=== PATIENT | male | born 1945 | race Caucasian/White ===

== ENCOUNTER 2025-01-26 07:54 | Outpatient (CLI) | payer MEDICARE, SELFPAY ==
--- NOTE | ~2025-01-26 | CT_ITS ---
CT of the Abdomen and Pelvis: Indication: Hematuria Technique: 2.5 mm axial scans were obtained through the abdomen and pelvis prior to and following in travenous administration of 130 cc of Omnipaque 350. Dose reduction technique was used on this scan b y utilizing automated exposure control and iterative reconstruction technique. The dose-length produc t (DLP) was 2104.70 mGy-cm. Findings: Scans through the lung bases demonstrates 3 mm nodule along the right minor fissure. The liver, spleen, pancreas, gallbladder, right adrenal gland, and kidneys are within normal limits. Left adrenal myelolipoma present. There is an additional 1.9 cm low-density left renal adenoma. There are atherosclerotic calcifications of the aorta and iliac vessels. No lymphadenopathy. No bowel obstruction or bowel wall thickening. There is no evidence to suggest acute appendicitis. Images through the pelvis were performed. There is a 3.5 x 2.8 cm mass the posterior right-sided urin stacey bladder, compatible urinary bladder carcinoma until proven otherwise (series 7 image 173).. Prost ate gland is enlarged, indenting the bladder base. Impression: 3.5 x 2.8 cm bladder mass at the posterior right aspect, compatible with bladder carcinoma until prov en otherwise. Cystoscopy recommended for further evaluation. Enlarged prostate gland. Benign left adrenal lesions, as above. Reviewed, dictated and finalized at location M. Impression: 3.5 x 2.8 cm bladder mass at the posterior right aspect, compatible with bladde r carcinoma until proven otherwise. Cystoscopy recommended for further evaluati on. Enlarged prostate gland. Benign left adrenal lesions, as above.
--- OUTSIDE RECORDS SUMMARY | 2025-01-26 07:58 | XMS_ITS | Referral Summary ---
Author Organization [facility] [address] Address [address] [place] [address] Care Team Providers Care Database Technician Name Role Phone Barron Foley DO Primary Care Provider [phone] Encounters Date Type Department Care Team Description 12/22/2024 Results Follow-Up [facility] at [address] [address] Zora Bullard NP Urine culture Urine, clean voided 12/21/2024 9:09 AM CDT - 12/21/2024 11:59 PM [place] [address] Gross hematuria Discharge Disposition: Discharge to home or self care 12/21/2024 8:15 AM CDT Office Visit [facility] at [address] [address] Naty Randall NP Gross hematuria (Primary Dx) from Last 3 Months Allergies Active Allergy Reactions Criticality Noted Date Comments Sulfa (Sulfonamide Antibiotics) Medications aspirin (ASPIR-81) 81 mg tablet take 1 Tablet by oral route every day 0 0 10/12/2015 Active multivitamin tablet tablet take 1 by Oral route once 0 0 10/12/2015 Active atorvastatin (LIPITOR) 20 mg tablet TAKE 1 TABLET EVERY DAY 90 tablet 3 06/26/2024 Active metoprolol XL (TOPROL-XL) 25 mg extended release tablet TAKE 1 TABLET EVERY DAY 90 tablet 3 08/01/2024 Active benazepriL-hydro chlorothiazide (LOTENSIN HCT) 20-25 mg per tablet TAKE 1 TABLET EVERY DAY 90 tablet 2 08/20/2024 Active Active Problems Problem Noted Date Diagnosed Date Coronary artery disease invo lving [place] coronary artery of [place] heart without angina pectoris 03/27/2017 History of coronary artery stent placement 03/27 Social History Tobacco Use Types Packs/Day Years Used Date Smoking Tobacco: Former Cigarettes Q uit: 01/14/2010 Smokeless Tobacco: Former Tobacco Cessation:Counseling Given: Not Answered Comments:Smoking History Packs/day: 4 Cigars Alcohol Use Standard Drinks/Week Comments Yes 0 (1 standard drink = 0.6 oz pur e alcohol) Sex and Gender Information Value Date Recorded Sex Assigned at Not on file 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 Gender Identity Not on file Sexual Orientation Not on file Last Filed Vital Signs Vital Sign Reading Time Taken Comments Blood Pressure 168/80 12/21/2024 8:16 AM CDT Pulse 62 12/21/2024 8:16 AM CDT Temperature 36.8 C (98.2 F) 12/21/2024 8:16 AM CDT Respiratory Rate 18 12/21/2024 8:16 AM CDT Oxygen Saturation 98% 12/21/2024 8:16 AM CDT Inhaled Oxygen Concentration - - Weight 96.2 kg (212 lb) 12/21/2024 8:16 AM CDT Height 170.2 cm (5' 7) 12/21/2024 8:16 AM CDT Body Mass Index 33.2 12/21/2024 8:16 AM CDT Plan of Treatment Not on file Procedures Procedure Name Priority Date/Time Associated Diagnosis Comments URINE CULTURE Routine 12/21/2024 9:10 AM CDT Gross hematuria POCT URINALYSIS DIPSTICK Routine 12/21/2024 8:24 AM CDT Gross hematuria from Last 3 Months Results * Urine culture Urine, clean voided (12/21/2024 9:10 AM CDT) Report Final Report: No growth Comment:Testing performed by : [facility], [address] [facility], [place]., [address] Urine, clean voided 12/21/2024 9:10 AM CDT 12/21/2024 4:09 PM CDT Narrative CHIP SHAFFER - 12/22/2024 5:02 PM CDT Testing performed by [facility] ([phone]) Naty Randall NP LAB MICROBIOLOGY - GENERAL ORDERABLES Final Result CHIP [facility]FFER [address] Department [place] [address] * (ABNORMAL) POCT urinalysis dipstick (12/21/2024 8:24 AM CDT) Color, Urine, POC Dark Pat Clarity, ur, POC Turbid(A) Clear Glucose, ur, POC Negative Negative Bilirubin, ur, POC Negative Negative Ketones, ur, POC Negative Negative Specific [place], POC 1.025 1.003 - 1.030 Blood, ur, POC Large(A) Negative pH, ur, POC 6.5 5.0 - 8.0 Protein, ur, POC 30.(A) Negative Urobilinogen, urine, POC 0.2 0.2 - 1.0 mg/dL Nitrite, ur, POC Positive(A) Negative Leukocytes, ur, POC Negative Negative Lot Number [id number] Urine 12/21/2024 8:24 AM CDT Naty Randall NP POINT OF CARE TEST ORDERAB LES Final Result from Last 3 Months Insurance MEDICARE [employer]ICARE [employer] Care Teams Database Technician Relationship Specialty Start Date End Date Barron Foley DO [address] [place], [place] [id number] PCP - General Internal Medicine 02/28/24
--- OUTSIDE RECORDS SUMMARY | 2025-01-26 07:58 | XMS_ITS | Encounter Summary ---
Author Organization [facility] Healthcare Address [address] [place] [address] Care Team Providers Care A Operator Name Role Phone Barron Foley DO Primary Care Provider [phone] Encounter Details Date Type Department Care Team (Late st Contact Info) Description 12/22/2024 Results Follow-Up [facility] Medical [facility] at [address] [address] Zora Bullard NP [address] [place] [address] [address] [place] [address] Urine culture Urine, clean voided Social History Tobacco Use Types Packs/Day Years Used Date Smoking Tobacco: Former Cigarettes Q uit: 01/14/2010 Smokeless Tobacco: Former Comments:Smoking History Pac ks/day: 4 Cigars Alcohol Use Standard Drinks/Week Comments Yes 0 (1 standard drink = 0.6 oz pur e alcohol) Sex and Gender Information Value Date Recorded Sex Assigned at Not on file Legal Sex Male 4:01 AM CPC Gender Identity Not on file Sexual Orientation Not on file documented as of this encounter Miscellaneous Notes * Result Encounter Note - Lisa Weiss MA - 12/24/2024 9:51 AM CDT Patient called back and was given his test results, He said that he has an appointment with a Urologist later this month. He said that he would keep the appointment to make sure that nothing else wasgoing on. He said that he was worried about all the blood that was found in his urine at the time of his visit. Other than that he had a good understanding. * Result Encounter Note - Trisha Perez LPN - 12/24/2024 8:08 AM CDT LMTRC for test results. * Result Encounter Note - Agnes Rodgers LPN - 12/23/2024 8:29 AM CDT LVM for pt to return call to clinic to notify them of labs results. * Result Encounter Note - Zora Bullard NP - 12/22/2024 5:11 PM CDT Please alert patient that urine culture was negative. He can stop taking antibiotics if any were given during visit for UTI. If s/s persist, he should follow up with PCP. documented in this encounter Plan of Treatment Not on file documented as of this encounter Visit Diagnoses Not on filedocumented in this encounter Care Teams A Operator Relationship Specialty Start Date End Date Barron Foley DO [address] [address] PCP - General Internal Medicine 02/28/24 documented as of this encounter
--- OUTSIDE RECORDS SUMMARY | 2025-01-26 07:58 | XMS_ITS | Clinical Summary ---
Author Organization [facility] [address] Address [address] [place] [address] Care Team Providers Care Passenger Conductor Name Role Phone Barron Foley Primary Care Provider [phone] Allergies Active Allergy Reactions Criticality Noted Date [...] Diagnosed Date Coronary artery disease invo lving [place] coronary artery of [place] heart without angina pectoris 03/27/2017 History of coronary artery stent placement 03/27 Encounters Date Type Department Care Team Description 12/22/2024 Results Follow-Up [facility] Medical [facility] Convenient [facility] at [address] [address] Zora Bullard NP Urine culture Urine, clean voided 12/21/2024 9:09 AM CDT - 12/21/2024 11:59 PM CDT Hospital Encounter [address] [address] Gross hematuria Discharge Disposition: Discharge to home or self care 12/21/2024 8:15 AM CDT Office Visit [facility] Medical [facility] at [address] [address] Naty Randall NP Gross hematuria (Primary Dx) from Last 3 Months Surgical History Surgery Date Site/Laterality Comments CORONARY STENT PLACEMENT Medical History Medical History Date Comments Coronary artery disease Family History Medical History Relation Name Comments Heart attack Father 2 Myocardial infa rction; Cause of : Myocardial infarction Diabetes Mother 2 Diabetes mellit ; Cause of : Diabetes mellitus Relation Name Status Comments Father 1 (Age 72) Father 2 Mother 1 (Age 80) Mother 2 Social History Tobacco Use Types Packs/Day Years Used Date Smoking Tobacco: Former Cigarettes Q uit: 01/14/2010 Smokeless Tobacco: Former Tobacco Cessation:Counseling Given: Not Answered Comments:Smoking History Packs/day: 4 Cigars Alcohol Use Standard Drinks/Week Comments Yes 0 (1 standard drink = 0.6 oz pur e alcohol) Sex and Gender Information Value Date Recorded Sex Assigned at Not on file 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 Gender Identity Not on file Sexual Orientation Not on file Obstetrics History Last Filed Vital Signs Vital Sign Reading [...] 12/21/2024 8:16 AM CDT Plan of Treatment Health Maintenance Due Date Last Done Comments Depression Screening 1945 Fall Risk Assessment 1945 Hepatitis C Screening 1945 DTaP/Tdap/Td Vaccine (1 - Tdap) 1958 Hepatitis B Screening 1965 Pneumococcal vaccine 65+ (1 of 1 - PCV) 1997 Zoster Vaccine (1 of 2) 1997 Abdominal Aortic Aneurysm (A AA) Screen 2012 Well Visit 65+ 2012 Influenza Vaccine (#1) 2025 9, 04/06/2018, 04/29/2017, Additional history exists Procedures Procedure Name Priority Date/Time Associated Diagnosis Comments URINE CULTURE Routine 12/21/2024 9:10 AM CDT Gross hematuria POCT URINALYSIS DIPSTICK Routine 12/21/2024 8:24 AM CDT Gross hematuria from Last 3 Months Results * Urine culture Urine, clean voided (12/21/2024 9:10 AM CDT) Report Final Report: No growth Comment:Testing performed by : [facility], [address] [place]., [address] Urine, clean voided 12/21/2024 9:10 AM CDT 12/21/2024 4:09 PM CDT Narrative CHIP SHAFFER - 12/22/2024 5:02 PM CDT Testing performed by [facility] Microbiology Laboratory ([phone]) Naty Randall NP LAB MICROBIOLOGY - GENERAL ORDERABLES Final Result [facility] [address] Department [place] [address] * (ABNORMAL) POCT urinalysis dipstick (12/21/2024 8:24 AM CDT) Color, Urine, POC Dark Pat Clarity, ur, POC Turbid(A) Clear Glucose, ur, POC Negative Negative Bilirubin, ur, POC Negative Negative Ketones, ur, POC Negative Negative Specific [place], POC 1.025 1.003 - 1.030 Blood, ur, POC Large(A) Negative pH, ur, POC 6.5 5.0 - 8.0 Protein, ur, POC 30.(A) Negative Urobilinogen, urine, POC 0.2 0.2 - 1.0 mg/dL Nitrite, ur, POC Positive(A) Negative Leukocytes, ur, POC Negative Negative Lot Number [id number] Urine 12/21/2024 8:24 AM CDT Naty Randall NP POINT OF CARE TEST ORDERAB LES Final Result from Last 3 Months Insurance MEDICARE [facility] MEDICARE [employer] Member Subscriber Plan / Payer (Ef fective 2022-Present) Name:Umang Mcclain Member ID:[id number] Relation to Subscriber:Self Name:Umang Mcclain Subscriber ID:[id number] Payer ID:[id number] Group ID:Not on file Type:COMMERCIAL Address: [address] [address] [place] [address] Care Teams Passenger Conductor Relationship Specialty Start Date End Date Barron Foley DO [address] [facility] [address] [place] [address] PCP - General Internal Medicine 02/28/24
[2025-01-26 08:25] LABS: Estimated Glomerular Filt Rate > 60
== END 2025-01-26 07:55 | disposition home or self-care (01) ==
PROVIDERS: PCP Internal Medicine; Visit Provider Nurse Practitioner Family
DX: R31.0 Gross hematuria (principal); N32.9 Bladder disorder, unspecified; N40.0 Benign prostatic hyperplasia without lower urinary tract symptoms; E27.9 Disorder of adrenal gland, unspecified
CPT/HCPCS: 74178; Q9967

== ENCOUNTER 2025-02-26 08:11 | Outpatient (CLI) | payer MEDICARE, SELFPAY ==
--- OUTSIDE RECORDS SUMMARY | 2025-02-26 08:15 | XMS_ITS | Clinical Summary ---
Author Organization [facility] [place] [address] Address [address] [place] [address] Care Team Providers Care Manager Technical Support Name Role Phone Barron Foley Primary Care Provider [phone] Allergies Active Allergy Reactions Criticality Noted Date [...] Diagnosed Date Coronary artery disease invo lving [place] coronary artery of [place] heart without angina pectoris 03/27/2017 History of coronary artery stent placement 03/27 Encounters Date Type Department Care Team Description 12/22/2024 Results Follow-Up [facility] Medical Group Convenient Care at [address] [address] Zora Bullard NP Urine culture Urine, clean voided 12/21/2024 9:09 AM CDT - 12/21/2024 11:59 PM CDT Hospital Encounter [address] [address] Gross hematuria Discharge Disposition: Discharge to home or self care 12/21/2024 8:15 AM CDT Office Visit [facility] Medical [facility] at [address] [address] Naty Randall NP Gross hematuria [...] on file 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 Gender Identity Not on file Sexual Orientation [...] Report: No growth Comment:Testing performed by : [facility], [address] [place]., [address] Urine, clean voided 12/21/2024 9:10 AM CDT 12/21/2024 4:09 PM CDT Narrative CHIP SHAFFER - 12/22/2024 5:02 PM CDT Testing performed by [facility] Laboratory ([phone]) Naty Randall NP LAB MICROBIOLOGY - GENERAL ORDERABLES Final Result [facility] [address] Department [place] [address] * (ABNORMAL) POCT urinalysis dipstick (12/21/2024 8:24 AM CDT) Color, Urine, POC Dark Pat Clarity, ur, POC Turbid(A) Clear Glucose, ur, POC Negative Negative Bilirubin, ur, POC Negative Negative Ketones, ur, POC Negative Negative Specific [place], POC 1.025 1.003 - 1.030 Blood, ur, POC Large(A) Negative pH, ur, POC 6.5 5.0 - 8.0 Protein, ur, POC 30.(A) Negative Urobilinogen, urine, POC 0.2 0.2 - 1.0 mg/dL Nitrite, ur, POC Positive(A) Negative Leukocytes, ur, POC Negative Negative Lot Number [id number] Urine 12/21/2024 8:24 AM CDT Naty Randall NP POINT OF CARE TEST ORDERAB LES Final Result from Last 3 Months Insurance MEDICARE [facility] MEDIC[place] [employer] Care Teams Manager Technical Support Relationship Specialty Start Date End Date Barron Foley DO [address] [facility] [address] [place] [address] PCP - General Internal Medicine 02/28/24
--- NOTE | 2025-02-26 08:20 | ECG_ITS ---
Test Date: 2025-02-26 08:26:25 Measurements Intervals [place] Rate: 61 P: 59 ME: 244 QRS: -29 QRSD: 101 T: 20 QT: 383 QTc: 386 Interpretive Statements SINUS RHYTHM WITH FIRST DEGREE AV BLOCK BORDERLINE LEFT AXIS DEVIATION [QRS AXIS < -20] No previous ECG available for comparison Electronically Signed On 02-26-2025 11:40:24 CDT by Jeremiah Madrid M.D.
[2025-02-26 09:03] LABS: Anion Gap 8 mmol/L (4-12); Blood Urea Nitrogen 13 mg/dL (9-20); Calcium 9.2 mg/dL (8.4-10.2); Carbon Dioxide 24 mmol/L (22-30); Chloride 100 mmol/L (98-107); Estimated Glomerular Filt Rate > 60; Glucose 136 mg/dL (65-110); Potassium 3.9 mmol/L (3.4-5.0); Sodium 132 mmol/L (137-145)
== END 2025-02-26 08:12 | disposition home or self-care (01) ==
PROVIDERS: Anesthesiology; PCP Internal Medicine; Visit Provider Urology
DX: R94.31 Abnormal electrocardiogram [ECG] [EKG] (principal); I10 Essential (primary) hypertension
CPT/HCPCS: 36415; 80048; 93005

== ENCOUNTER 2025-03-05 00:11 | Day surgery (SDC) | payer MEDICARE, SELFPAY ==
--- NOTE | 2025-02-25 15:16 | PC.NURSE ---
Report to the Outpatient Waiting Room, entrance under the green pavilion located off [facility], at time __1:15 PM on date __03/05/25 . Planned Procedure Time: __3:15 PM .? Time changes happen often and if your time is changed the preop area will call you the afternoon before. - You and your visitor will be asked to self-screen and do not enter if you have any COVID symptoms. Please call surgeon if you need to reschedule. - A mask is optional within the hospital at this time. Patients may have clear liquids (water, carbonated beverages, clear teas, apple juice) until 3 hours prior to surgery( 12:15 PM) with a maximum of 20 ounces. - No food from midnight until time of surgery and no smoking, or chewing tobacco (or any form of nicotine). No chewing gum, candy or mints. Take only the following medications with a SIP of water on the morning of surgery: METOPROLOL DO NOT STOP ANY OF YOUR OTHER PRESCRIPTION MEDICATIONS PRIOR TO SURGERY EXCEPT THE FOLLOWING Hold all vitamins and supplements for 3 days per anesthesiologist. Medications to discontinue per physician PATIENT STATES HOLD ASPIRIN AND MULTIVITAMIN 7 DAYS PRE OP PER DR DAY Date to take last dose 02/25/25 Please no make-up, nail canadian, hairspray, perfume, deodorant, or body powder the day of surgery.? No jewelry (including any body piercings) or valuables the day of surgery, leave them at home.? Please take a shower or bath the night before, or the morning of, surgery with an antibacterial soap.? Wear comfortable, loose fitting clothing.? Children are encouraged to wear pajamas. - Jewelry must be removed prior to entering the operating room.? Rings and piercings that are not removed may be cut off. - The hospital will not accept responsibility for valuables.? - Please leave all valuables, including medications, at home the day of surgery. If you are going home after surgery, a licensed driver messenger must drive you home.? - NO public transportation without another adult if you receive anesthesia. - We recommend that an adult stay with you for 24 hours following discharge. - We also recommend that you do not drive, make important decision, drink alcoholic beverages, or take any drugs that were not prescribed by your health care provider for at least 24 hours after your discharge time. Follow any additional instructions given to you from your surgeon. Telephone instructions given to __PATIENT and asked if any additional questions and then verbalized understanding. Patient advised to call surgeon office or pre surgery nurse liaison [phone] if any additional questions.
[2025-02-25 15:34] VITALS: BMI 34.4
--- NOTE | 2025-02-26 07:30 | P.HP_ITS ---
History of Present Illness History of Present Illness Consent: Risks, benefits, and alternatives have been discussed and questions answered. Patient agrees to proceed with procedure. Chief complaint: bladder tumor Narrative: Umang Mcclain is a 79 year old male with intermittent episodes of painless gross hematuria. ?CT of the abdomen and pelvis w/wo contrast shows normal upper tracts but a possible 3 cm bladder mass. ?Cystoscopy confirms a papillary urot helial neoplasm in the right posterolateral bladder wall. ?He has a very large prostate with a large median lobe, hence our decision to start finasteride Review of Systems Cardiovascular: Cardiovascular: Denies chest pain, Denies lightheadedness, Denies palpitations and Denies dyspnea Respiratory: Respiratory: Denies dyspnea Gastrointestinal: Gastrointestinal: Denies diarrhea, Denies nausea and Denies vomiting Genitourinary: Genitourinary: Denies hematuria and Denies dysuria Endocrine: Endocrine: Denies palpitations [facility] Family History Family History Mother Family history of diabetes mellitus in first degree relative Patient's mother is Father Family history of congestive heart failure, Onset Age: 72 Patient's father is Social History Social History Smoking status: Never smoker Tobacco type: cigars Second hand tobacco smoke exposure: No Smoking end date: 06/25/10 Additional smoking assessment comments: QUIT CIGARS 2014 Alcohol intake: current Drinks per week: 12 Alcohol use details: BEER Lack of Transportation: No Lack of Food: Never True Current Housing: I Have Housing Concerned About Future Housing: No Difficulty Paying Gas/Electric Bills: No Difficulty Paying for Meds: No Currently Unemployed: No Education: High School Diploma/GED Difficulty w/ Childcare or Family Care: No Living arrangements: alone Spiritual care concerns: No Meds Home Medications and Allergies Home Medications ?Medication ?Instructions ?Recorded ?Confirmed ?Type aspirin 81 mg tablet,delayed 81 mg PO DAILY 06/20/19 0 02/25/25 History release (Adult Low Dose Aspirin) atorvastatin 20 mg tablet 20 mg PO DAILY 06/20/1909/16 History metoprolol succinate 25 mg 25 mg PO DAILY 06/20/1909/16 History tablet,extended release 24 hr multivitamin (Multiple Vitamins 1 tablet PO DAILY 05/2602/25/25 History tablet) benazepril 20 mg tablet 20 mg PO DAILY 03/27/2309/16 History benazepril 20 1 tablet PO DAILY 02/25/25 0 02/25/25 History mg-hydrochlorothiazide 25 mg tablet finasteride 5 mg tablet 5 mg PO DAILY 02/25/2502/25 History tamsulosin 0.4 mg capsule 0.4 mg PO DAILY 02/25/2509/16 History Allergies Allergy/AdvReac Type Severity Reaction Status Date / Time Sulfa (Sulfonamide Allergy Mild Hives Verified 02/25/25 15:15 Antibiotics) Exam Const: General: no acute distress Resp: Effort & Inspection: normal respiratory effort GI: Inspection: non-distended GI Palp: No abdominal tenderness and No Guarding due to palpation present (GI) Auscultation: normal bowel sounds Assessment and Plan Assessment and plan (1) Malignant neoplasm of overlapping sites of bladder: Code(s): C67.8 - Malignant neoplasm of overlapping sites of bladder Status: Acute Assessment and Plan: * TURBT, gemcitabine installation
[2025-03-05] VITALS (11 sets, daily range): BP systolic 93–156; BP diastolic 43–82; PULSE 60–80; RESP 12–18; TEMP 36.1–36.4; O2SAT 94–100
--- NOTE | 2025-03-05 06:01 | WPDHPUPDATE1 ---
History and Physical Update Update Date/Time: 03/05/25 06:01 History and Physical has been reviewed, including an updated exam of the patient. There are NO changes in the patient's condition. Risks, benefits, and alternatives have been discussed and questions answered. Patient agrees to proceed with procedure.
[2025-03-05] MEDS: LACTATED RINGERS 1,000 ML 30 ML IV CONT ×2 (13:00→15:06)
--- NOTE | 2025-03-05 13:12 | WPDANESEPPF ---
Anes - Initial Pre Proc Eval Procedure: Operation Date: 03/05/25 14:15 Proposed Procedures p Trans Urethral Resection Bladder Tumor with Gemcitabine Instillation - Prince Pedroza MD Date/Time: 03/05/25 13:12 Surgeon: Prince Pedroza MD Pre Op Diagnosis: bladder tumor Patient Data Age: 80 Gender: M Height: 1.7 m Weight: 94.5 kg Last Vital Signs Temp 36.4 C L 03/05/25 12:15 Pulse 64 03/05/25 12:15 Resp 18 03/05/25 12:15 BP 156/82 H 03/05/25 12:15 Pulse Ox 98 03/05/25 12:15 O2 Del Method Room Air 03/05/25 12:15 Allergies Allergy/AdvReac Type Severity Reaction Status Date / Time Sulfa (Sulfonamide Allergy Mild Hives Verified 03/05/25 12:41 Antibiotics) Home Medications ?Medication ?Instructions ?Recorded ?Confirmed ?Type aspirin 81 mg tablet,delayed 81 mg PO DAILY 06/20/19 03/05/25 History release (Adult Low Dose Aspirin) atorvastatin 20 mg tablet 20 mg PO DAILY 06/20/19 03/05/25 History metoprolol succinate 25 mg 25 mg PO DAILY 06/20/19 03/05/25 History tablet,extended release 24 hr multivitamin (Multiple Vitamins 1 tablet PO DAILY 06/20/19 03/05/25 History tablet) benazepril 20 mg tablet 20 mg PO DAILY 03/27/23 02/25/25 History benazepril 20 1 tablet PO DAILY 02/25/25 03/05/25 History mg-hydrochlorothiazide 25 mg tablet finasteride 5 mg tablet 5 mg PO DAILY 02/25/25 03/05/25 History tamsulosin 0.4 mg capsule 0.4 mg PO DAILY 02/25/25 03/05/25 History Patient hx anesthesia problems: none Family hx anesthesia problems: none Results Review: All pre-operative results and documents have been reviewed as part of the pre-operative evaluation. [facility] Family History Family History Mother Family history of diabetes mellitus in first degree relative Patient's mother is Father Family history of congestive heart failure, Onset Age: 72 Patient's father is Social History Social History Smoking status: Never smoker Second hand tobacco smoke exposure: No Smoking end date: 06/25/10 Additional smoking assessment comments: QUIT CIGARS 2014 Alcohol intake: current Drinks per week: 12 Lack of Transportation: No Lack of Food: Never True Current Housing: I Have Housing Concerned About Future Housing: No Difficulty Paying Gas/Electric Bills: No Difficulty Paying for Meds: No Currently Unemployed: No Education: High School Diploma/GED Difficulty w/ Childcare or Family Care: No Anes - Eval Final PreProcedure Day of Procedure 03/05/25 13:12 Patient weight: obese Heart: regular rate and rhythm Lungs: clear to auscultation Airway: Mallampati scale class III Neurological: alert and oriented Last oral intake: >/= 8 hours ASA classification: III Emergent: no Anesthetic plan: proceed Anesthesia type and monitoring: general LMA and standard monitoring Results Review: All pre-operative results and documents have been reviewed as part of the pre-operative evaluation. Informed Consent: The patient's anesthetic plan and its attendant risks and benefits were discussed with the patient/family/POA. Questions were solicited and answers provided to the satisfaction of the patient/family/POA.
[2025-03-05] MEDS: ceFAZolin 2 GM in SODIUM CHLORIDE 0.9% IV 50 ML 100 ML IVPB (13:58)
[2025-03-05] MEDS: LIDOCAINE 2% GEL UROJET 10 ML PKG MUCOUS MEM (14:11)
--- NOTE | 2025-03-05 14:30 | S_PTH ---
PATIENT: Umang Mcclain LOC: [facility] U#:[id number] AGE/SX: 80/M ROOM: RE03/05/[address]: Prince Pedroza MD : 1945 BED: DIS: 03/05/2025 SPEC #: [id number] RECD: 03/06/25 07:27 STATUS: FIGUEROA REQ #: [id number] SABRINA: 03/05/25 14:[address]: Prince Pedroza DEPT: [facility] Surgical RECD BY: Kassandra Steve ENTERED: 03/06/25 07:28 SP TYPE: Surgical OTHR DR: Barron Foley DO Tissues: A - Bladder Tumor B - Bladder Tumor Procedures: Hematoxylin and Eosin Stain Gross and Microscopic Level 4
[2025-03-05] MEDS: SODIUM CHLORIDE 0.9% IV 23.7 ML, GEMCITABINE HCL 1,000 MG BLADDER ×2 (14:55)
[2025-03-05] MEDS: fentaNYL CITRATE INJ (*CRX) 100 MCG/2 ML VIAL 25 MCG IV PUSH ×6 (15:00→15:48)
--- NOTE | 2025-03-05 15:02 | W.PM.PROC2 ---
Procedure Note - Detailed Date of Procedure 03/05/25 Pre-op Diagnosis Bladder tumor Post-op Diagnosis Same Procedure Performed TURBT (large, 5cm), right ureteroscopy Surgeon Prince Pedroza MD Anesthesia General Description of Procedure Patient brought to the operative suite was prepped draped in routine sterile fashion while in dorsal lithotomy position after the uneventful induction of a general anesthetic. Cystoscopy was undertaken with a 24 F resectoscope sheath. The patient has significant lateral lobe enlargement and a very large median lobe protruding into the bladder. This large papillary lesion is situated in his right posterior lateral bladder wall. Somewhat surprisingly, I was able to resect it in its entirety without much trauma to this large median lobe. Also, somewhat surprisingly, I was able to clearly identify the right ureteral orifice. Although resection was required near it I was able to avoid cautery. At the termination of the procedure I did do right rigid ureteroscopy to the iliac vessels and saw no identifiable urothelial cancer involving the distal right ureter. Base and periphery of the resected site was cauterized and the resectoscope was removed. A 18 F Moran catheter was placed to drainage for mitomycin installation Drains Yes Packing No Pathology None sent
--- NOTE | 2025-03-05 15:07 | P.OP_ITS ---
Procedure Note - Detailed Date of Procedure 03/05/25 Pre-op Diagnosis bladder tumor Post-op Diagnosis Same Procedure Performed Gemcitabine installation Surgeon Prince Pedroza MD Anesthesia General and None Description of Procedure With the patient in the supine position, a 16F Moran catheter is placed using s terile technique. Using a protective facemask, gown and double layer of gloves Gemcitabine 2gm in 100cc saline is administered through the catheter/into the bladder. The catheter is then plugged. Patient was instructed to lie supine x20min, then to roll both the left and right x20 min. each. Total dwell time will be 60 min., after which the bladder will be drained and catheter removed.
== END 2025-03-05 17:15 | disposition home or self-care (01) ==
PROVIDERS: PCP Internal Medicine; Visit Provider Urology
PROC: 0TBB8ZZ Excision of Bladder, Via Natural or Artificial Opening Endoscopic (ICD-10-PCS; CPT 52240; principal; 2025-03-05 14:15)
DX: C67.8 Malignant neoplasm of overlapping sites of bladder (principal); N40.0 Benign prostatic hyperplasia without lower urinary tract symptoms; N30.20 Other chronic cystitis without hematuria; E66.9 Obesity, unspecified; Z68.32 Body mass index [BMI] 32.0-32.9, adult; Z79.82 Long term (current) use of aspirin; Z87.891 Personal history of nicotine dependence; Z82.49 Family history of ischemic heart disease and other diseases of the circulatory system
CPT/HCPCS: 52240; 51720; 88305; J0690; J2003; J2405; J2704; J3010; J7120; J9201

== ENCOUNTER 2025-03-13 12:23 | Outpatient (CLI) | payer MEDICARE, SELFPAY ==
--- NOTE | ~2025-03-13 | XR_ITS ---
EXAMINATION: XR toe 1st LT min 2V, 03/13/2025 13:27 CDT HISTORY: M79.676 - Pain in unspecified toe(s) COMPARISON: No comparisons available. Findings: No acute fracture or malalignment. Moderate degenerative changes Soft tissues unremarkable. Impression: No acute fracture or malalignment. Reviewed, dictated and finalized at location A. Impression: No acute fracture or malalignment.
== END 2025-03-13 12:24 | disposition home or self-care (01) ==
PROVIDERS: PCP Internal Medicine; Visit Provider Nurse Practitioner
DX: M79.675 Pain in left toe(s) (principal)
CPT/HCPCS: 73660

== ENCOUNTER 2025-04-09 00:18 | Day surgery (SDC) | payer MEDICARE, SELFPAY ==
[2025-04-01 10:21] VITALS: BMI 32.3
--- NOTE | 2025-04-01 10:27 | PC.NURSE ---
[facility] has started construction of its new state of the art ER which will open Spring 2026. With this, we anticipate parking may be a challenge for some our surgical patients and families. Parking spaces are limited but are available for all Surgical, obstetrics, and ER patients sharing this lot. If you arrive and find you are having a hard time finding a parking space, please note that we understand the challenges, please drive around the hospital and park near Hospital Entrance 1. When you enter this entrance, you can ask a volunteer to direct or take you back to the surgical waiting area to check in. We appreciate everyone?s understanding of these expected challenges while we build for your future. Report to the Outpatient Waiting Room, entrance under the green pavilion located off [address], at time __1045am on date __04/09/25 . Planned Procedure Time: __1245pm .? Time changes happen often and if your time is changed the preop area will call you the afternoon before. - You and your visitor will be asked to self-screen and do not enter if you have any COVID symptoms. Please call surgeon if you need to reschedule. - A mask is optional within the hospital at this time. Patients may have clear liquids (water, carbonated beverages, clear teas, apple juice) until 3 hours prior to surgery with a maximum of 20 ounces. - No food from midnight until time of surgery and no smoking, or chewing tobacco (or any form of nicotine). No chewing gum, candy or mints. (0945am) Take only the following medications with a SIP of water on the morning of surgery: Metoprolol DO NOT STOP ANY OF YOUR OTHER PRESCRIPTION MEDICATIONS PRIOR TO SURGERY EXCEPT THE FOLLOWING Hold all vitamins and supplements for [address] Pedroza Date of last dose is 04/01/25 Medications to discontinue per physician Aspirin and NSAIDS for 7 days prior Date to take last dose___04/01/25 Please no make-up, nail malawian, hairspray, perfume, deodorant, or body powder the day of surgery.? No jewelry (including any body piercings) or valuables the day of surgery, leave them at home.? Please take a shower or bath the night before, or the morning of, surgery with an antibacterial soap.? Wear comfortable, loose fitting clothing.? Children are encouraged to wear pajamas. - Jewelry must be removed prior to entering the operating room.? Rings and piercings that are not removed may be cut off. - The hospital will not accept responsibility for valuables.? - Please leave all valuables, including medications, at home the day of surgery. If you are going home after surgery, a licensed route driver salesperson must drive you home.? - NO public transportation without another adult if you receive anesthesia. - We recommend that an adult stay with you for 24 hours following discharge. - We also recommend that you do not drive, make important decision, drink alcoholic beverages, or take any drugs that were not prescribed by your health care provider for at least 24 hours after your discharge time. Follow any additional instructions given to you from your surgeon. Telephone instructions given to ___Patient and asked if any additional questions and then verbalized understanding. Patient advised to call surgeon office or pre surgery nurse liaison [phone] if any additional questions.
[2025-04-09] VITALS (7 sets, daily range): BP systolic 102–146; BP diastolic 58–88; PULSE 53–66; RESP 13–16; TEMP 36.1–36.4; O2SAT 94–99
--- NOTE | 2025-04-09 06:25 | WPDHPUPDATE1 ---
History and Physical Update Update Date/Time: 04/09/25 06:25 History and Physical has been reviewed, including an updated exam of the patient. There are NO changes in the patient's condition. Risks, benefits, and alternatives have been discussed and questions answered. Patient agrees to proceed with procedure.
[2025-04-09] MEDS: LACTATED RINGERS 1,000 ML 30 ML IV CONT (10:52)
--- NOTE | 2025-04-09 11:09 | WPDANESEPPF ---
Anes - Initial Pre Proc Eval Procedure: Operation Date: 04/09/25 12:30 Proposed Procedures p Re-Resection of Bladder Tumor - Prince Pedroza MD Date/Time: 04/09/25 11:09 Surgeon: Prince Pedroza MD Pre Op Diagnosis: inva bladder ca Patient Data Age: 80 Gender: M Height: 1.7 m Weight: 93.1 kg Last Vital Signs Temp 36.4 C 04/09/25 10:30 Pulse 66 04/09/25 10:30 Resp 16 04/09/25 10:30 BP 126/81 04/09/25 10:30 Pulse Ox 99 04/09/25 10:30 O2 Del Method Room Air 04/09/25 10:30 Allergies Allergy/AdvReac Type Severity Reaction Status Date / Time Sulfa (Sulfonamide Allergy Mild Hives Verified 04/09/25 10:58 Antibiotics) Home Medications ?Medication ?Instructions ?Recorded ?Confirmed ?Type aspirin 81 mg tablet,delayed 81 mg PO DAILY 06/20/19 04/09/25 History release (Adult Low Dose Aspirin) Held on 04/01/25. Instructions: .Provider Order atorvastatin 20 mg tablet 20 mg PO DAILY 06/20/19 04/09/25 History metoprolol succinate 25 mg 25 mg PO DAILY 06/20/19 04/09/25 History tablet,extended release 24 hr multivitamin (Multiple Vitamins 1 tablet PO DAILY 06/20/19 04/09/25 History tablet) benazepril 20 1 tablet PO DAILY 02/25/25 04/09/25 History mg-hydrochlorothiazide 25 mg tablet finasteride 5 mg tablet 5 mg PO DAILY 02/25/25 04/09/25 History tamsulosin 0.4 mg capsule 0.4 mg PO DAILY 02/25/25 04/09/25 History colchicine 0.6 mg tablet 0.6 mg PO BID #10 tabs 03/31/25 04/09/25 Rx methylprednisolone 4 mg tablets in See Rx Instructions PO PER PKG DIR 03/31/25 04/09/25 Rx a dose pack (Medrol (Jason)) #21 ea Patient hx anesthesia problems: none Family hx anesthesia problems: none Results Review: All pre-operative results and documents have been reviewed as part of the pre-operative evaluation. [facility] Past Medical History Medical History (Updated 03/31/25 @ 10:23 by Naveen Mead APRN) Bladder mass BMI 24.0-24.9, adult Elevated blood pressure reading Other fatigue Rash of genital area Pure hypercholesterolemia Inflamed skin tag Gout, unspecified Encounter for screening for malignant neoplasm of prostate Adult general medical examination Family History Family History (Updated 03/31/25 @ 09:18 by Tena Alcantara Spencer) Mother Family history of diabetes mellitus in first degree relative Father Family history of congestive heart failure, Onset Age: 72 Social History Social History (Updated 03/31/25 @ 09:45 by Tena Alcantara Spencer) Smoking status: Former smoker Tobacco type: cigars Second hand tobacco smoke exposure: No Smoking end date: 06/25/10 Additional smoking assessment comments: QUIT CIGARS 2014 Alcohol intake: current Drinks per week: 12 Alcohol use details: BEER Substance use: never Substance use type: does not use Do You Feel Safe in your Home?: Yes Lack of Transportation: No Lack of Food: Never True Current Housing: I Have Housing Concerned About Future Housing: No Difficulty Paying Gas/Electric Bills: No Difficulty Paying for Meds: No Currently Unemployed: No Education: High School Diploma/GED Difficulty w/ Childcare or Family Care: No Living arrangements: alone Occupation/Education: retired Additional occupation/education comments: [employer] Gender identity (if verbalized by the patient): Male Spiritual care concerns: No Anes - Eval Final PreProcedure Day of Procedure 04/09/25 11:09 Patient weight: obese Heart: regular rate and rhythm Lungs: clear to auscultation Airway: Mallampati scale class II Neurological: alert and oriented Last oral intake: >/= 8 hours ASA classification: III Emergent: no Anesthetic plan: proceed Anesthesia type and monitoring: general LMA and standard monitoring Results Review: All pre-operative results and documents have been reviewed as part of the pre-operative evaluation. Informed Consent: The patient's anesthetic plan and its attendant risks and benefits were discussed with the patient/family/POA. Questions were solicited and answers provided to the satisfaction of the patient/family/POA.
[2025-04-09] MEDS: ceFAZolin 2 GM in SODIUM CHLORIDE 0.9% IV 50 ML 100 ML IVPB (11:55)
--- NOTE | 2025-04-09 12:19 | S_PTH ---
PATIENT: Umang Mcclain LOC: [facility] U#:[id number] AGE/SX: 80/M ROOM: RE04/09/[address]: Prince Pedroza MD : 1945 BED: DIS: 04/09/2025 SPEC #: [id number] RECD: 04/09/25 13:26 STATUS: FIGUEROA REQ #: [id number] SABRINA: 04/09/25 12:[address]: Prince Pedroza DEPT: [facility] Surgical RECD BY: Kassandra Steve ENTERED: 04/09/25 13:26 SP TYPE: Surgical OTHR DR: Barron Foley DO Tissues: A - Bladder TURBT Procedures: Hematoxylin and Eosin Stain Gross and Microscopic Level 5
[2025-04-09] MEDS: LIDOCAINE 2% GEL UROJET 10 ML PKG MUCOUS MEM (12:20)
--- NOTE | 2025-04-09 12:30 | W.PM.PROC2 ---
Procedure Note - Detailed Date of Procedure 04/09/25 Pre-op Diagnosis History of muscle-invasive bladder ca. Post-op Diagnosis Same Procedure Performed Re-resection bladder tumor base Surgeon Prince Pedroza MD Anesthesia General Findings No gross residual bladder tumor Description of Procedure patient is brought to the operative suite was prepped draped in routine sterile fashion while in a dorsal lithotomy position. Twenty-four F resectoscope sheath was placed in the bladder. The bladder was very carefully inspected. I can see the site of the previous TURBT in the right posterior bladder wall. There was no gross residual or recurrent neoplasm in that site. Using a 24 F resectoscope loop I resected the base great care to avoid any resection or cautery around the right ureteral orifice. The base and periphery of this resected site was cauterized with the loop. Scopes and wires removed and he was taken to the recovery good condition Drains No Packing No Pathology None sent
== END 2025-04-09 13:50 | disposition home or self-care (01) ==
PROVIDERS: PCP Internal Medicine; Visit Provider Urology
PROC: 0TBB8ZZ Excision of Bladder, Via Natural or Artificial Opening Endoscopic (ICD-10-PCS; CPT 52235; principal; 2025-04-09 12:30)
DX: N32.89 Other specified disorders of bladder (principal); N40.0 Benign prostatic hyperplasia without lower urinary tract symptoms; I11.0 Hypertensive heart disease with heart failure; I50.9 Heart failure, unspecified; E11.9 Type 2 diabetes mellitus without complications; E78.5 Hyperlipidemia, unspecified; I25.10 Atherosclerotic heart disease of native coronary artery without angina pectoris; R53.83 Other fatigue; Z79.82 Long term (current) use of aspirin; Z87.891 Personal history of nicotine dependence; Z85.51 Personal history of malignant neoplasm of bladder; Z82.49 Family history of ischemic heart disease and other diseases of the circulatory system
CPT/HCPCS: 52235; 88307; J0690; J2003; J2405; J2704; J7120

== ENCOUNTER 2025-04-09 22:17 | Observation (INO) | payer MEDICARE, SELFPAY ==
--- NOTE | ~2025-04-09 | CT_ITS ---
EXAMINATION: CT abdomen pelvis w con DATE: 04/10/2025 01:16 INDICATION: Hematuria TECHNIQUE: Computed tomography (CT) of the abdomen and pelvis was performed with 100 mL Omnipaque-350 intravenous contrast. Automated exposure control and iterative reconstruction technique were employed. The dose-length product was 805.85 mGy-cm. COMPARISON: 01/26/2025 FINDINGS: Respiratory motion and mild atelectasis at the bilateral lung bases. Heart size is normal. Atherosclerotic coronary artery calcifications and aortic valve calcification. No pericardial effusion. Liver, gallbladder, spleen, pancreas and right adrenal gland are normal. 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 There is a second 1.5 cm soft tissue density left adrenal nodule with low-attenuation on prior noncontrast CT consistent with an adenoma. 3.6 cm right renal cyst. Atherosclerotic calcifications at the bilateral renal tavia. No urolithiasis. There is some stranding in the fat along the right posterior bladder wall likely related to recent urologic procedure at the site of the prev ious intraluminal masslike density which is not identified on the current study entered and which could have represented since evacuated clot or interval resected tumor. Correlate with surgical history. Moran catheter in the bladder. Mild prostatomegaly which impresses upon the base of the bladder. Bowels including the appendix are normal. No free intraperitoneal gas or fluid. No pathologically enlarged abdominal or pelvic lymphadenopathy. Small bilateral fat-containing inguinal hernias. Mild lumbar and lower thoracic spondylosis. IMPRESSION: 1. Mild stranding in the fat along the right posterior bladder wall likely related to recent urologic procedure. The previous noted intraluminal mass along the right posterior bladder which could have represent either clot or neoplasm is no longer visualized. Correlate with details of prior surgery. 2. No other acute intra-abdominal/pelvic process. 3. Prostatomegaly. 4. Small bilateral fat-containing inguinal hernias. Reviewed, dictated and finalized at location A. IMPRESSION: 1. Mild stranding in the fat along the right posterior bladder wall likely rela bj to recent urologic procedure. The previous noted intraluminal mass along th e right posterior bladder which could have represent either clot or neoplasm is no longer visualized. Correlate with details of prior surgery. 2. No other acute intra-abdominal/pelvic process. 3. Prostatomegaly. 4. Small bilateral fat-containing inguinal hernias.
[2025-04-09 23:30] VITALS: PULSE 71; RESP 15
[2025-04-09 23:45] VITALS: PULSE 78; RESP 18; O2SAT 95
[2025-04-09 23:46] VITALS: BP 191/80; PULSE 74; RESP 19; O2SAT 98
[2025-04-10] VITALS (11 sets, daily range): BP systolic 124–169; BP diastolic 63–84; PULSE 55–69; RESP 15–21; TEMP 36.2–36.7; O2SAT 96–99; BMI 32.3
--- NOTE | 2025-04-10 00:23 | ED.GENADULT ---
HPI - General Adult General Chief complaint: Unspecified Stated complaint: hematuria/clots post op Time Seen by Provider: 04/09/25 23:52 Limitations: dementia History of Present Illness HPI narrative: 80-year-old male with a past medical history including bladder mass suspected cancer status post revision surgery this morning for resection. He sees Dr. Pedroza from Urology here. Patient states that he went home after the procedure without any difficulties and was urinating okay with some mild drops of blood. At approximately 7:00 p.m. he had the sudden sensation of needing to urinate and blood clot started to pass and then stopped urinating entirely and feels like he was not able to urinate anymore. Had abdominal distension and pain at that time. No nausea or fever. No traumatic injuries. He called the Urology group who referred him back to the ER for evaluation. Related Data Home Medications ?Medication ?Instructions ?Recorded ?Confirmed ?Last Taken ?Type aspirin 81 mg tablet,delayed 81 mg PO DAILY 06/20/19 04/10/25 04/01/25 History release (Adult Low Dose Aspirin) Held on 04/09/25. Instructions: Resume on 04/11/25. atorvastatin 20 mg tablet 20 mg PO DAILY 06/20/19 04/10/25 04/09/25 History metoprolol succinate 25 mg 25 mg PO DAILY 06/20/19 04/10/25 04/09/25 History tablet,extended release 24 hr multivitamin (Multiple Vitamins 1 tablet PO DAILY 06/20/19 04/10/25 04/09/25 History tablet) benazepril 20 1 tablet PO DAILY 02/25/25 04/10/25 04/09/25 History mg-hydrochlorothiazide 25 mg tablet finasteride 5 mg tablet 5 mg PO DAILY 02/25/25 04/10/25 04/09/25 History tamsulosin 0.4 mg capsule 0.4 mg PO DAILY 02/25/25 04/10/25 04/09/25 History Allergies Allergy/AdvReac Type Severity Reaction Status Date / Time Sulfa (Sulfonamide Allergy Mild Hives Verified 04/10/25 06:22 Antibiotics) Review of Systems Review of Systems: As reviewed above in HPI [facility] Past Medical History Medical History Bladder mass BMI 24.0-24.9, adult Elevated blood pressure reading Other fatigue Rash of genital area Pure hypercholesterolemia Inflamed skin tag Gout, unspecified Encounter for screening for malignant neoplasm of prostate Adult general medical examination Family History Family History Mother Family history of diabetes mellitus in first degree relative Father Family history of congestive heart failure, Onset Age: 72 Social History Social History Smoking status: Former smoker Tobacco type: cigars Second hand tobacco smoke exposure: No Smoking end date: 06/25/10 Additional smoking assessment comments: QUIT CIGARS 2014 Alcohol intake: current Drinks per week: 12 Alcohol use details: BEER Substance use: never Substance use type: does not use Do You Feel Safe in your Home?: Yes Lack of Transportation: No Lack of Food: Never True Current Housing: I Have Housing Concerned About Future Housing: No Difficulty Paying Gas/Electric Bills: No Difficulty Paying for Meds: No Currently Unemployed: No Education: High School Diploma/GED Difficulty w/ Childcare or Family Care: No Living arrangements: alone Occupation/Education: retired Additional occupation/education comments: [employer] Gender identity (if verbalized by the patient): Male Spiritual care concerns: No Exam Narrative: GENERAL: Uncomfortable but not ill-appearing. Awake alert oriented. HEAD: [Normocephalic, atraumatic.] EYES: [PERRLA and EOMI.] ENT: Nares clear, no rhinorrhea or epistaxis. Mucous membranes moist. NECK: Supple. CHEST: [Clear to auscultation. No respiratory distress.] HEART: [Regular rate and rhythm]. No murmur heard. [Normal peripheral pulses.] ABDOMEN: Soft and nondistended, tender in the suprapubic region, no rigidity or guarding EXTREMITIES: Normal range of motion. [No edema.] SKIN: Warm, dry, no rash. NEURO: [No focal deficits]. Alert and oriented [x3.] PSYCH: [Normal mood and affect.] Course Vital Signs Vital signs: Vital Signs Pulse Rate 71 04/09/25 23:30 Respiratory Rate 15 04/09/25 23:30 Temperature 36.2 C L 04/10/25 06:03 Pulse Rate 55 L 04/10/25 06:03 Respiratory Rate 16 04/10/25 06:03 Blood Pressure 140/63 04/10/25 06:03 Pulse Oximetry 97 04/10/25 06:03 Medical Decision Making MDM Narrative Medical decision making narrative: 80-year-old male with a past medical history including bladder mass suspected cancer status post revision surgery this morning for resection. He sees Dr. Pedroza from Urology here. Patient states that he went home after the procedure without any difficulties and was urinating okay with some mild drops of blood. At approximately 7:00 p.m. he had the sudden sensation of needing to urinate and blood clot started to pass and then stopped urinating entirely and feels like he was not able to urinate anymore. Had abdominal distension and pain at that time. No nausea or fever. No traumatic injuries. He called the Urology group who referred him back to the ER for evaluation. Patient is uncomfortable appearing. Not in any acute distress. Suprapubic tenderness without any significant distension. Likely clot hematuria causing obstruction and urinary retention. Bedside ultrasound shows greater than 100 cc of fluid in the bladder. Three way Moran catheter was placed for continuous bladder irrigation with immediate return of clots and hematuria. CBI initiated this time while workup underway with blood work, coag studies, CT scan with contrast. Placed on cardiac technologist. Vital signs are reassuring without any tachycardia, fever, hypoxia or blood pressure concerns. Will contact Urology upon workup for admission and continuous CBI. Patient's last dose of aspirin was over 8 days ago. No other anticoagulation use. CT scan shows Moran catheter in the bladder as well as wall thickening and inflammation. Urinalysis has mostly red blood cells and no bacteria visualized. Hemoglobin did drop about 1.5 g from his previous levels. CBI initiated with improvement in clot hematuria now just having hematuria which is also lightening up. Hemodynamically stable and pain under control. Spoke to Dr. Good from Urology who recommended continue CBI and admission. Asked about any empiric antibiotics and was told he does not need this at this time. Spoke to the hospitalist team accepted the patient to the floor at this time. Patient and family made aware of the plan. Medical Records Medical records reviewed: Yes I reviewed the external patient's medical records. Vital Signs Vital Signs: Vital Signs Pulse Rate 71 04/09/25 23:30 Respiratory Rate 15 04/09/25 23:30 Temperature 36.2 C L 04/10/25 06:03 Pulse Rate 55 L 04/10/25 06:03 Respiratory Rate 16 04/10/25 06:03 Blood Pressure 140/63 04/10/25 06:03 Pulse Oximetry 97 04/10/25 06:03 Lab Data Lab results reviewed: Yes I reviewed the patient's lab results. 04/10/25 00:22 04/10/25 00:22 Labs: Lab Results 04/10/25 Range/Units 00:22 WBC 9.7 (4.5-10.0) K/mm3 RBC 4.38 L (4.6-6.20) M/mm3 Hgb 13.3 L (14.0-18.0) g/dL Hct 38.4 L (42.0-52.0) % MCV 87.7 (80-100) fl MCH 30.4 (26-34) pg MCHC 34.6 (32-36) g/dl RDW 13.0 (11.5-14.5) % Plt Count 174 (150-375) k/mm3 MPV 9.0 (7.4-10.4) fl Immature Gran % (Auto) 0.4 (0-0.5) % Neut % (Auto) 77.0 H (45.5-73.1) % Lymph % (Auto) 13.9 L (18.3-44.2) % [place] % (Auto) 6.7 (2.6-8.5) % Eos % (Auto) 1.6 (0-4.4) % Baso % (Auto) 0.4 (0.2-1.2) % Lymph # (Auto) 1.35 (0.9-3.2) K/mm3 [place] # (Auto) 0.7 H (0.1-0.6) K/mm3 Eos # (Auto) 0.2 (0-0.3) K/mm3 Baso # (Auto) 0.0 (0.0-0.1) K/mm3 Abs Immat Gran (auto) 0.04 H (0.00-0.031) K/mm3 Absolute Neuts (auto) 7.5 H (1.3-6.7) K/mm3 Absolute Nucleated RBC 0.000 (0.0-0.012) K/mm3 Nucleated RBC % 0.0 (0.0-0.2) % PT 13.8 (11.1-14.7) Seconds INR 1.1 APTT 28.2 (22.3-36.8) Seconds Sodium 129 L (137-145) mmol/L Potassium 3.9 (3.4-5.0) mmol/L Chloride 99 (98-107) mmol/L Carbon Dioxide 23 (22-30) mmol/L Anion Gap 7 (4-12) mmol/L BUN 10 (9-20) mg/dL Creatinine 0.58 L (0.7-1.3) mg/dL Estim Creat Clear Calc Not Reportable Estimated GFR > 60 (59 - ) Glucose 149 H (65-110) mg/dL Calcium 8.4 (8.4-10.2) mg/dL Total Bilirubin 0.9 (0.2-1.3) mg/dL AST 25 (17-59) U/L ALT 29 (6-50) U/L Alkaline Phosphatase 66 (38-126) U/L Total Protein 6.4 (6.3-8.2) g/dL Albumin 3.8 (3.5-5.1) g/dL Urine Color Red H (Yellow) Urine Appearance Clear (Clear) Urine pH 6.5 (5.0-9.0) Ur Specific [place] 1.006 (1.001-1.035) Urine Protein 3+ H (Negative) mg/dL Urine Glucose (UA) Negative (Negative) mg/dL Urine Ketones Negative (Negative) mg/dL Ur Blood (Man) 3+ H (Negative) Urine Nitrate Negative (Negative) Urine Bilirubin 1+ H (Negative) Urine Urobilinogen 1.0 (<2.0) mg/dL Leukocyte Esterase Rfl 1+ H (Negative) HERACLIO/UL Urine RBC >100 H (0-2) /hpf Urine WBC 6-10 H (0-3) /hpf Ur Squamous Epith Cells None seen (Few) /hpf Urine Bacteria None seen /hpf Urine Casts 0-2 Imaging Data Attestation: I personally reviewed and interpreted this imaging study as follows: My impression: Bladder wall irritation and inflammation, Moran catheter in the bladder. Discharge Plan Discharge Clinical Impression: Clot hematuria, Acute urinary obstruction, Malignant neoplasm of overlapping sites of bladder Patient Disposition: Still a Patient Condition: Stable
--- OUTSIDE RECORDS SUMMARY | 2025-04-10 00:26 | XMS_ITS | Clinical Summary ---
Author Organization [facility] [place] [address] Address [address] [place] [address] Care Team Providers Care Film Critic Name Role Phone Barron Foley Primary Care Provider [phone] Allergies Active Allergy Reactions Criticality Noted Date [...] EVERY DAY 90 tablet 2 08/20/2024 Active finasteride (PROSCAR) 5 mg tablet 02/11/2025 Active tamsulosin (FLOMAX) 0.4 mg extended release capsule 02/11/2025 Active Active Problems Problem Noted Date Diagnosed Date Coronary artery disease invo lving [place] coronary artery of [place] heart without angina pectoris 03/27/2017 History of coronary artery stent placement 03/27 Encounters Date Type Department Care Team Description 03/23/2025 8:45 AM CDT Office Visit [facility] Cardiology at [address] [place] [address] Yosvany Logan MD Coronary artery disease involving [place] coronary artery of [place] heart without angina pectoris (Primary Dx); History of coronary artery stent placement from Last 3 Months Surgical History Surgery Date Site/Laterality Comments CORONARY STENT PLACEMENT Medical History Medical History Date Comments Coronary artery disease Family History Medical History Relation Name Comments Heart attack Father 2 Myocardial infa rction; Cause of : Myocardial infarction Diabetes Mother 2 Diabetes mellit us; Cause of : Diabetes mellitus Relation Name [...] on file Legal Sex Male 4:01 AM [employer] Gender Identity Not on file Sexual Orientation Not on file Obstetrics History Last Filed Vital Signs Vital Sign Reading Time Taken Comments Blood Pressure 124/68 03/23/2025 8:28 AM CDT Pulse 70 03/23/2025 8:28 AM CDT Temperature 36.8 C (98.2 F) 12/21/2024 8:16 AM CDT Respiratory Rate 18 12/21/2024 8:16 AM CDT Oxygen Saturation 98% 03/23/2025 8:28 AM CDT Inhaled Oxygen Concentration - - Weight 95 kg (209 lb 6.4 oz) 03/23/2025 8:28 AM CDT Height 170.2 cm (5' 7) 03/23/2025 8:28 AM CDT Body Mass Index 32.8 03/23/2025 8:28 AM CDT Plan of Treatment Health Maintenance Due Date Last Done Comments Depression Screening 1945 Fall Risk Assessment 1945 Hepatitis C Screening 1945 DTaP/Tdap/Td Vaccine (1 - Tdap) 1958 Hepatitis B Screening 1965 Zoster Vaccine (1 of 2) 1997 Abdominal Aortic Aneurysm (A AA) Screen 2012 Well Visit 65+ 2012 Influenza Vaccine (#1) 2025 9, 04/09/2019, 04/07/2018, Additional history exists Pneumococcal vaccine 65+ Completed 03/21/2021, 02/24 Insurance MEDICARE [employer] Care Teams Film Critic Relationship Specialty Start Date End Date Barron Foley DO PCP - General Internal Medicine 02/28/24
[2025-04-10 00:43] LABS: Hematocrit 38.4 % (42.0-52.0); Hemoglobin 13.3 g/dL (14.0-18.0); Immature Granulocyte Percent A 0.4 % (0-0.5); Lymphocytes Absolute Auto 1.35 K/mm3 (0.9-3.2); Mean Corpuscular HGB Conc 34.6 g/dl (32-36); Mean Corpuscular Hemoglobin 30.4 pg (26-34); Mean Corpuscular Volume 87.7 fl (80-100); Nucleated Red Blood Cells Absolute Auto 0.000 K/mm3 (0.0-0.012); Nucleated Red Blood Cells Perc 0.0 % (0.0-0.2); Platelet Count Result 174 k/mm3 (150-375); Red Blood Count 4.38 M/mm3 (4.6-6.20); White Blood Count 9.7 K/mm3 (4.5-10.0)
[2025-04-10 00:46] LABS: Non Pathogenic Casts 0-2
[2025-04-10 00:48] LABS: Add Urine Microscopic? YES; Appearance Urine Clear (Clear); Glucose Urine UA Negative (Negative); Leukocyte Esterase Ur 1+ LEU/UL (Negative); Nitrate Urine Negative (Negative); Specific Grav Ur 1.006 (1.001-1.035)
[2025-04-10 00:53] LABS: Alanine Aminotransferase 29 U/L (6-50); Albumin Level 3.8 g/dL (3.5-5.1); Alkaline Phosphatase 66 U/L (38-126); Anion Gap 7 mmol/L (4-12); Aspartate Amino Transferase 25 U/L (17-59); Bilirubin,Total 0.9 mg/dL (0.2-1.3); Blood Urea Nitrogen 10 mg/dL (9-20); Calcium 8.4 mg/dL (8.4-10.2); Carbon Dioxide 23 mmol/L (22-30); Chloride 99 mmol/L (98-107); Estimated Glomerular Filt Rate > 60; Glucose 149 mg/dL (65-110); Potassium 3.9 mmol/L (3.4-5.0); Sodium 129 mmol/L (137-145); Total Protein 6.4 g/dL (6.3-8.2)
[2025-04-10 00:56] LABS: INR 1.1; Prothrombin Time 13.8 Seconds (11.1-14.7)
[2025-04-10 00:57] LABS: Partial Thromboplastin Time 28.2 Seconds (22.3-36.8)
[2025-04-10] MEDS: LACTATED RINGERS 1,000 ML 100 ML IV CONT (04:49)
--- NOTE | 2025-04-10 06:55 | WPDURCON ---
Assessment and Plan Assessment and plan (1) Clot hematuria: Code(s): R31.0 - Gross hematuria Status: Acute (2) Malignant neoplasm of overlapping sites of bladder: Code(s): C67.8 - Malignant neoplasm of overlapping sites of bladder Status: Acute Assessment and Plan: Postoperative hematuria with clots 6-8 hours TURBT yesterday The fact that his cleared promptly with catheter placement suggest this may have been a bleed his prostate (which is quite large) Will keep the continuous bladder irrigation through today. Tomorrow morning, if it remains clear, his catheter can be for a voiding trial Currently, his CBI is perfectly clear in his bladder irrigates freely without clots Urology Consult Note HPI Date Seen: 04/10/25 Requesting Physician: Alla Nieves MD Primary Care Provider: Barron Foley DO Consult Narrative Narrative: Umang Mcclain is a 80 year old male who is status post re-resection of a bladder tumor yesterday. He did well for 6-8 hours but then developed spontaneous hematuria with clots. He never actually developed clot urinary retention. Catheter placement in the ER his hematuria cleared promptly. Review of Systems Review of Systems: All systems reviewed & are unremarkable except as noted in HPI and below PMFSH Past Medical History Medical History Bladder mass BMI 24.0-24.9, adult Elevated blood pressure reading Other fatigue Rash of genital area Pure hypercholesterolemia Inflamed skin tag Gout, unspecified Encounter for screening for malignant neoplasm of prostate Adult general medical examination Family History Family History Mother Family history of diabetes mellitus in first degree relative Father Family history of congestive heart failure, Onset Age: 72 Social History Social History Smoking status: Former smoker Tobacco type: cigars Second hand tobacco smoke exposure: No Smoking end date: 06/25/10 Additional smoking assessment comments: QUIT CIGARS 2014 Alcohol intake: current Drinks per week: 12 Alcohol use details: BEER Substance use: never Substance use type: does not use Do You Feel Safe in your Home?: Yes Lack of Transportation: No Lack of Food: Never True Current Housing: I Have Housing Concerned About Future Housing: No Difficulty Paying Gas/Electric Bills: No Difficulty Paying for Meds: No Currently Unemployed: No Education: High School Diploma/GED Difficulty w/ Childcare or Family Care: No Living arrangements: alone Occupation/Education: retired Additional occupation/education comments: [employer] Gender identity (if verbalized by the patient): Male Spiritual care concerns: No Meds Home Medications and Allergies Home Medications ?Medication ?Instructions ?Recorded ?Confirmed ?Type aspirin 81 mg tablet,delayed 81 mg PO DAILY 06/20/19 04/10/25 History release (Adult Low Dose Aspirin) Held on 04/09/25. Instructions: Resume on 04/11/25. atorvastatin 20 mg tablet 20 mg PO DAILY 06/20/19 04/10/25 History metoprolol succinate 25 mg 25 mg PO DAILY 06/20/19 04/10/25 History tablet,extended release 24 hr multivitamin (Multiple Vitamins 1 tablet PO DAILY 06/20/19 04/10/25 History tablet) benazepril 20 1 tablet PO DAILY 02/25/25 04/10/25 History mg-hydrochlorothiazide 25 mg tablet finasteride 5 mg tablet 5 mg PO DAILY 02/25/25 04/10/25 History tamsulosin 0.4 mg capsule 0.4 mg PO DAILY 02/25/25 04/10/25 History Allergies Allergy/AdvReac Type Severity Reaction Status Date / Time Sulfa (Sulfonamide Allergy Mild Hives Verified 04/10/25 06:22 Antibiotics) Vital Signs Vital Signs - 24 hr 04/09/25 23:30 04/09/25 23:45 04/09/25 23:46 Temperature Pulse Rate 71 78 74 Respiratory Rate 15 18 19 Blood Pressure 191/80 H Pulse Oximetry 95 98 04/10/25 00:00 04/10/25 00:02 04/10/25 00:15 Temperature Pulse Rate 69 69 63 Respiratory Rate 21 H 17 15 Blood Pressure 169/84 H Pulse Oximetry 98 98 97 04/10/25 00:17 04/10/25 00:30 04/10/25 00:32 Temperature Pulse Rate 64 66 67 Respiratory Rate 17 21 H 18 Blood Pressure 146/69 H 141/63 H Pulse Oximetry 97 96 97 04/10/25 05:39 04/10/25 06:03 Temperature 97.2 F L Pulse Rate 61 55 L Respiratory Rate 18 16 Blood Pressure 137/65 140/63 Pulse Oximetry 98 97 Exam Urinary Catheter: Urinary Catheter: patent and draining and urine clear Results Labs 04/10/25 00:22 04/10/25 00:22 Labs: Short CBC 04/10/25 Range/Units 00:22 WBC 9.7 (4.5-10.0) K/mm3 Hgb 13.3 L (14.0-18.0) g/dL Hct 38.4 L (42.0-52.0) % Plt Count 174 (150-375) k/mm3 BMP 04/10/25 00:22 Sodium 129 L Potassium 3.9 Chloride 99 Carbon Dioxide 23 BUN 10 Creatinine 0.58 L Glucose 149 H Calcium 8.4 Liver Function 04/10/25 Range/Units 00:22 Total Bilirubin 0.9 (0.2-1.3) mg/dL AST 25 (17-59) U/L ALT 29 (6-50) U/L Alkaline Phosphatase 66 (38-126) U/L Albumin 3.8 (3.5-5.1) g/dL Urine 04/10/25 Range/Units 00:22 Urine Color Red H (Yellow) Urine Appearance Clear (Clear) Urine pH 6.5 (5.0-9.0) Ur Specific [place] 1.006 (1.001-1.035) Urine Protein 3+ H (Negative) mg/dL Urine Glucose (UA) Negative (Negative) mg/dL
--- NOTE | 2025-04-10 07:01 | PM.IMHP ---
H&P: HPI History of Present Illness Date/Time: 04/10/25 07:01 Chief Complaint: Hematuria Narrative: Umang Mcclain is a 80 year old male with a past medical history of HTN, T2DM, HLP, CAD, malignant neoplasm of bladder who presented to the hospital for hematuria/blood clots several hours after a TURBT procedure that occurred on 04/09/2025. He reported no symptoms 6-8 hours after bladder resection but then developed hematuria with blood clots. After the patient arrived to the ER, a urine catheter was placed and his hematuria cleared up immediately. He denies any chest pain, shortness of breath, nausea/vomiting, abdominal pain, or bowel changes. ED Workup: 36.2C, 55HR, 16RR, 97% on RA, 140/63 WBC 9.7, HGB 13 3, HCT 34, PLT 174, PT/INR WNL sodium 129, potassium 3.9, BUN 10, creatinine 0.58, LFTs are WNL UA: 3+ protein, 3+ blood, 1+ bilirubin, 1+ leukocyte esterase, >100RBC, 6-10 WBC, no bacteria or nitrate Abdomen/pelvis CT: 1. Mild stranding in the fat along the right posterior bladder wall likely related to recent urologic procedure. The previous noted intraluminal mass along the right posterior bladder which could have represent either clot or neoplasm is no longer visualized. Correlate with details of prior surgery. 2. No other acute intra-abdominal/pelvic process. 3. Prostatomegaly. 4. Small bilateral fat-containing inguinal hernias. Review of Systems Review of Systems: All systems reviewed & are unremarkable except as noted in HPI and below PMFSH Past Medical History Medical History Bladder mass BMI 24.0-24.9, adult Elevated blood pressure reading Other fatigue Rash of genital area Pure hypercholesterolemia Inflamed skin tag Gout, unspecified Encounter for screening for malignant neoplasm of prostate Adult general medical examination Family History Family History Mother Family history of diabetes mellitus in first degree relative Father Family history of congestive heart failure, Onset Age: 72 Social History Social History Smoking status: Never smoker Tobacco type: cigars Second hand tobacco smoke exposure: No Smoking end date: 06/25/10 Additional smoking assessment comments: QUIT CIGARS 2014 Alcohol intake: current Drinks per week: 12 Alcohol use details: BEER Substance use: never Substance use type: does not use Do You Feel Safe in your Home?: Yes Lack of Transportation: No Lack of Food: Never True Current Housing: I Have Housing Concerned About Future Housing: No Difficulty Paying Gas/Electric Bills: No Difficulty Paying for Meds: No Currently Unemployed: No Education: High School Diploma/GED Difficulty w/ Childcare or Family Care: No Living arrangements: alone Occupation/Education: retired Additional occupation/education comments: [employer] Gender identity (if verbalized by the patient): Male Spiritual care concerns: No Meds Home Medications and Allergies Home Medications ?Medication ?Instructions ?Recorded ?Confirmed ?Type aspirin 81 mg tablet,delayed 81 mg PO DAILY 06/20/19 04/10/25 History release (Adult Low Dose Aspirin) Held on 04/09/25. Instructions: Resume on 04/11/25. atorvastatin 20 mg tablet 20 mg PO DAILY 06/20/19 04/10/25 History metoprolol succinate 25 mg 25 mg PO DAILY 06/20/19 04/10/25 History tablet,extended release 24 hr multivitamin (Multiple Vitamins 1 tablet PO DAILY 06/20/19 04/10/25 History tablet) benazepril 20 1 tablet PO DAILY 02/25/25 04/10/25 History mg-hydrochlorothiazide 25 mg tablet finasteride 5 mg tablet 5 mg PO DAILY 02/25/25 04/10/25 History tamsulosin 0.4 mg capsule 0.4 mg PO DAILY 02/25/25 04/10/25 History Allergies Allergy/AdvReac Type Severity Reaction Status Date / Time Sulfa (Sulfonamide Allergy Mild Hives Verified 04/10/25 06:22 Antibiotics) Vital Signs Vital Signs - 24 hr 04/09/25 23:30 04/09/25 23:45 04/09/25 23:46 Temperature Pulse Rate 71 78 74 Respiratory Rate 15 18 19 Blood Pressure 191/80 H Pulse Oximetry 95 98 04/10/25 00:00 04/10/25 00:02 04/10/25 00:15 Temperature Pulse Rate 69 69 63 Respiratory Rate 21 H 17 15 Blood Pressure 169/84 H Pulse Oximetry 98 98 97 04/10/25 00:17 04/10/25 00:30 04/10/25 00:32 Temperature Pulse Rate 64 66 67 Respiratory Rate 17 21 H 18 Blood Pressure 146/69 H 141/63 H Pulse Oximetry 97 96 97 04/10/25 05:39 04/10/25 06:03 Temperature 97.2 F L Pulse Rate 61 55 L Respiratory Rate 18 16 Blood Pressure 137/65 140/63 Pulse Oximetry 98 97 Exam Narrative: Gen - well appearing male in no acute respiratory distress who is nontoxic-appearing lying semi recumbent in bed HEENT - normocephalic. Atraumatic. Pupils equal round and reactive. Nares patent. Moist mucous membranes. Neck - neck was supple. No dominant adenopathy, thyromegaly or masses. Chest - lungs are clear to auscultation bilaterally. No wheezes or crackles. CV - heart was regular rate and rhythm. S1-S2. No murmurs gallops or rubs. Abd - abdomen was soft. Nontender. Nondistended. Positive bowel sounds. : Urine catheter patent, draining Ext - no clubbing, cyanosis or edema. 2+ DP pulses bilaterally. Neuro - patient is alert and oriented x4. Strength is 5/5 in both upper and lower extremities. Speech is clear. Psych - normal mood and affect. Patient is pleasant and cooperative. Skin - warm and dry. No rashes noted. H&P: Results Labs Labs: Short CBC 04/10/25 Range/Units 00:22 WBC 9.7 (4.5-10.0) K/mm3 Hgb 13.3 L (14.0-18.0) g/dL Hct 38.4 L (42.0-52.0) % Plt Count 174 (150-375) k/mm3 BMP 04/10/25 00:22 Sodium 129 L Potassium 3.9 Chloride 99 Carbon Dioxide 23 BUN 10 Creatinine 0.58 L Glucose 149 H Calcium 8.4 Liver Function 04/10/25 Range/Units 00:22 Total Bilirubin 0.9 (0.2-1.3) mg/dL AST 25 (17-59) U/L ALT 29 (6-50) U/L Alkaline Phosphatase 66 (38-126) U/L Albumin 3.8 (3.5-5.1) g/dL Urine 04/10/25 Range/Units 00:22 Urine Color Red H (Yellow) Urine Appearance Clear (Clear) Urine pH 6.5 (5.0-9.0) Ur Specific [place] 1.006 (1.001-1.035) Urine Protein 3+ H (Negative) mg/dL Urine Glucose (UA) Negative (Negative) mg/dL Assessment and Plan Assessment and plan (1) Clot hematuria: Code(s): R31.0 - Gross hematuria Status: Acute Assessment and Plan: History of TURBT procedure, performed on 04/09. Started developing hematuria and subsequent blood clots 6-8 hours after procedure. Then developed complete urinary retention Catheter placed in ER, hematuria immediately cleared up, remains patent and draining Abd/Pelvis CT: Mild stranding in the fat along the right posterior bladder wall likely related to recent urologic procedure. The previous noted intraluminal mass along the right posterior bladder which could have represent either clot or neoplasm is no longer visualized. Correlate with details of prior surgery. No other acute intra-abdominal/pelvic process. Prostatomegaly Urology consulted Continue CBI through tomorrow Void trial tomorrow if catheter remains clear (2) Acute urinary obstruction: Code(s): N13.9 - Obstructive and reflux uropathy, unspecified Status: Acute Assessment and Plan: Likely secondary to gross urinary clot formation (3) Type II diabetes mellitus: Code(s): E11.9 - Type 2 diabetes mellitus without complications Status: Acute Assessment and Plan: Hypoglycemia protocol POC blood glucose ACHS Home medication - none Correct regimen ordered - low dose SSI Glucose 131 Last A1C 7.2 (11/18/24) (4) Malignant neoplasm of overlapping sites of bladder: Code(s): C67.8 - Malignant neoplasm of overlapping sites of bladder Status: Acute Assessment and Plan: TURBT procedure 04/09 for hx of bladder mass suspected cancer Follows Dr. Pedroza (5) Hyperlipidemia: Code(s): E78.5 - Hyperlipidemia, unspecified Status: Acute Assessment and Plan: Continue Atorvastatin (6) Hypertension: Qualifiers: Hypertension type: primary hypertension Qualified Code(s): I10 - Essential (primary) hypertension Code(s): I10 - Essential (primary) hypertension Status: Acute Assessment and Plan: Continue at-home medications Quality VTE Prophylaxis VTE prophylaxis: mechanical ordered
[2025-04-10 07:03] LABS: Hematocrit 38.1 % (42.0-52.0); Hemoglobin 13.1 g/dL (14.0-18.0)
[2025-04-10 07:04] LABS: Hematocrit 38.3 % (42.0-52.0); Hemoglobin 13.2 g/dL (14.0-18.0); Mean Corpuscular HGB Conc 34.5 g/dl (32-36); Mean Corpuscular Hemoglobin 30.3 pg (26-34); Mean Corpuscular Volume 88.0 fl (80-100); Platelet Count Result 173 k/mm3 (150-375); Red Blood Count 4.35 M/mm3 (4.6-6.20); White Blood Count 9.2 K/mm3 (4.5-10.0)
[2025-04-10 07:25] LABS: Anion Gap 4 mmol/L (4-12); Blood Urea Nitrogen 8 mg/dL (9-20); Calcium 8.7 mg/dL (8.4-10.2); Carbon Dioxide 30 mmol/L (22-30); Chloride 101 mmol/L (98-107); Estimated CRCL calculation 89 ml/min; Estimated Glomerular Filt Rate > 60; Glucose 132 mg/dL (65-110); Potassium 4.5 mmol/L (3.4-5.0); Sodium 135 mmol/L (137-145)
[2025-04-10] MEDS: METOPROLOL SUCCINATE EXT REL 25 MG TABCR PO (11:03)
[2025-04-10] MEDS: MULTIVITAMINS THERAPEUTIC TAB (*BKC) 1 TABLET PO (11:03)
[2025-04-10] MEDS: ATORVASTATIN 20 MG TABLET PO (11:04)
[2025-04-10] MEDS: TAMSULOSIN HCL 0.4 MG CAPSULE PO (11:04)
[2025-04-10] MEDS: FINASTERIDE 5 MG TABLET PO (11:04)
[2025-04-10 13:07] LABS: Hematocrit 39.4 % (42.0-52.0); Hemoglobin 13.6 g/dL (14.0-18.0)
--- NOTE | 2025-04-10 16:20 | P.PNUR_ITS ---
Progress Note: A&P Assessment and Plan (1) Clot hematuria: Code(s): R31.0 - Gross hematuria Status: Acute (2) Malignant neoplasm of overlapping sites of bladder: Code(s): C67.8 - Malignant neoplasm of overlapping sites of bladder Status: Acute Assessment and Plan: * POD1 turbt * CBI currently on low-flow with pink urine. Plan to stop CBI at 6:00 a.m. tomorrow and then do a voiding trial around 0 800 tomorrow morning. * Contact Dr. Felton with any issues * WBC and kidney function are stable and within normal limits. Subjective Subjective Date/Time Seen: 04/10/25 16:20 Interval history: POD 1 TURBT. urine in bag on low flow cbi is pink. patient is feeling good. Review of Systems Review of Systems: All systems reviewed & are unremarkable except as noted in HPI and below Exam Urinary Catheter: Urinary Catheter: patent and draining and urine clear Objective Data Vital Signs Vital Signs: Vital Signs - 24 hr 04/09/25 23:30 04/09/25 23:45 04/09/25 23:46 Temperature Pulse Rate 71 78 74 Respiratory Rate 15 18 19 Blood Pressure 191/80 H Pulse Oximetry 95 98 Oxygen Delivery 04/10/25 00:00 04/10/25 00:02 04/10/25 00:15 Temperature Pulse Rate 69 69 63 Respiratory Rate 21 H 17 15 Blood Pressure 169/84 H Pulse Oximetry 98 98 97 Oxygen Delivery 04/10/25 00:17 04/10/25 00:30 04/10/25 00:32 Temperature Pulse Rate 64 66 67 Respiratory Rate 17 21 H 18 Blood Pressure 146/69 H 141/63 H Pulse Oximetry 97 96 97 Oxygen Delivery 04/10/25 05:39 04/10/25 06:03 04/10/25 08:00 Temperature 97.2 F L Pulse Rate 61 55 L Respiratory Rate 18 16 Blood Pressure 137/65 140/63 Pulse Oximetry 98 97 Oxygen Delivery Room Air 04/10/25 08:00 04/10/25 15:27 Temperature 98.0 F 98.0 F Pulse Rate 65 65 Respiratory Rate 18 18 Blood Pressure 124/69 124/69 Pulse Oximetry 99 99 Oxygen Delivery Intake/Output Intake/Output: Intake & Output 04/07/25 04/08/25 04/09/25 04/10/25 23:59 23:59 23:59 23:59 Intake Total 600 Output Total 5950 Balance -5350 Meds/Results Medications: Active Medications Generic Name Dose Route Start Last Admin Trade Name Freq PRN Reason Stop Dose Admin Acetaminophen 650 mg 04/10/25 04:17 Acetaminophen 325 Mg Tablet PO Q4H PRN Mild Pain (1-3) or Fever Atorvastatin Calcium 20 mg 04/10/25 10:35 04/10/25 11:04 Atorvastatin 20 Mg Tablet PO 20 mg DAILY [place] Administration Dextrose 12.5 gm 04/10/25 10:28 Dextrose 50% 25 Gm/50 Ml Syringe IV PUSH PRN PRN Hypoglycemia Protocol Finasteride 5 mg 04/10/25 10:35 04/10/25 11:04 Finasteride 5 Mg Tablet PO 5 mg DAILY [place] Administration Glucagon 1 mg 04/10/25 10:28 Glucagon For Inj 1 Mg Vial IM PRN PRN Hypoglycemia Protocol Glucose 15 gm 04/10/25 10:28 Glucose Oral Gel 15 Gm Of Glucse In 37.5 Gm Tube PO PRN PRN Hypoglycemia Protocol Hydrochlorothiazide 25 mg 04/10/25 10:40 04/10/25 11:04 Hydrochlorothiazide 25 Mg Tablet PO 25 mg DAILY [place] Administration Lactated Ringer's 1,000 mls @ 100 mls/hr 04/10/25 04:20 04/10/25 04:49 Lr - Lactated Ringers Iv IV CONT 100 mls/hr .Q10H [place] Administration Dextrose 1,000 mls @ 100 mls/hr 04/10/25 10:28 Dextrose 5% 1,000 Ml IVPB PRN PRN Hypoglycemia Protocol Insulin Aspart 2 - 5 units 04/10/25 12:00 04/10/25 12:33 Insulin Aspart (*Bkc) 100 Units/Ml SUB-Q Not Given TIDWM [place] Protocol Insulin Aspart 1 - 2 units 04/10/25 21:00 Insulin Aspart (*Bkc) 100 Units/Ml SUB-Q HS [place] Protocol Lisinopril 20 mg 04/10/25 10:40 04/10/25 11:03 Lisinopril 20 Mg Tablet PO 05/11/25 10:39 20 mg DAILY [place] Administration Metoprolol Succinate 25 mg 04/10/25 10:40 04/10/25 11:03 Metoprolol Succinate Ext Rel 25 Mg Tabcr PO 25 mg DAILY [place] Administration Multivitamins Therapeutic 1 tablet 04/10/25 10:40 04/10/25 11:03 Multivitamins Therapeutic Tab (*Bkc) PO 1 tablet DAILY [place] Administration Ondansetron HCl 4 mg 04/10/25 04:17 Ondansetron Inj 4 Mg/2 Ml Vial IV PUSH Q4H PRN Nausea Tamsulosin HCl 0.4 mg 04/10/25 10:40 04/10/25 11:04 Tamsulosin Hcl 0.4 Mg Capsule PO 0.4 mg DAILY [place] Administration Radiology Results: ITS Impressions Abdomen/Pelvis CT 04/10/25 08:07 IMPRESSION: 1. Mild stranding in the fat along the right posterior bladder wall likely related to recent urologic procedure. The previous noted intraluminal mass along the right posterior bladder which could have represent either clot or neoplasm is no longer visualized. Correlate with details of prior surgery. 2. No other acute intra-abdominal/pelvic process. 3. Prostatomegaly. 4. Small bilateral fat-containing inguinal hernias. Labs Labs: Laboratory Results - last 24 hr 04/10/25 04/10/25 04/10/25 00:22 06:23 06:23 WBC 9.7 9.2 RBC 4.38 L 4.35 L Hgb 13.3 L 13.1 L 13.2 L Hct 38.4 L 38.1 L MCV 87.7 MCH 30.4 MCHC 34.6 RDW 13.0 Plt Count 174 MPV 9.0 Immature Gran % (Auto) 0.4 Neut % (Auto) 77.0 H Lymph % (Auto) 13.9 L [place] % (Auto) 6.7 Eos % (Auto) 1.6 Baso % (Auto) 0.4 Lymph # (Auto) 1.35 [place] # (Auto) 0.7 H Eos # (Auto) 0.2 Baso # (Auto) 0.0 Abs Immat Gran (auto) 0.04 H Absolute Neuts (auto) 7.5 H Absolute Nucleated RBC 0.000 Nucleated RBC % 0.0 PT 13.8 INR 1.1 APTT 28.2 Sodium 129 L Potassium 3.9 Chloride 99 Carbon Dioxide 23 Anion Gap 7 BUN 10 Creatinine 0.58 L Estim Creat Clear Calc Not Reportable Estimated GFR > 60 Glucose 149 H POC Capillary Glucose Calcium 8.4 Total Bilirubin 0.9 AST 25 ALT 29 Alkaline Phosphatase 66 Total Protein 6.4 Albumin 3.8 Urine Color Red H Urine Appearance Clear Urine pH 6.5 Ur Specific [place] 1.006 Urine Protein 3+ H Urine Glucose (UA) Negative Urine Ketones Negative Ur Blood (Man) 3+ H Urine Nitrate Negative Urine Bilirubin 1+ H Urine Urobilinogen 1.0 Leukocyte Esterase Rfl 1+ H Urine RBC >100 H Urine WBC 6-10 H Ur Squamous Epith Cells None seen Urine Bacteria None seen Urine Casts 0-2 04/10/25 04/10/25 04/10/25 06:23 12:10 12:56 WBC RBC Hgb 13.6 L Hct 38.3 L 39.4 L MCV 88.0 MCH 30.3 MCHC 34.5 RDW 13.0 Plt Count 173 MPV 9.2 Immature Gran % (Auto) Neut % (Auto) Lymph % (Auto) [place] % (Auto) Eos % (Auto) Baso % (Auto) Lymph # (Auto) [place] # (Auto) Eos # (Auto) Baso # (Auto) Abs Immat Gran (auto) Absolute Neuts (auto) Absolute Nucleated RBC Nucleated RBC % PT INR APTT Sodium 135 L Potassium 4.5 Chloride 101 Carbon Dioxide 30 Anion Gap 4 BUN 8 L Creatinine 0.64 L Estim Creat Clear Calc 89 Estimated GFR > 60 Glucose 132 H POC Capillary Glucose 132 H Calcium 8.7 Total Bilirubin AST ALT Alkaline Phosphatase Total Protein Albumin Urine Color Urine Appearance Urine pH Ur Specific [place] Urine Protein Urine Glucose (UA) Urine Ketones Ur Blood (Man) Urine Nitrate Urine Bilirubin Urine Urobilinogen Leukocyte Esterase Rfl Urine RBC Urine WBC Ur Squamous Epith Cells Urine Bacteria Urine Casts
[2025-04-10] MEDS: INSULIN ASPART (*BKC) 100 UNITS/ML SUB-Q ×2 (17:17→20:55)
[2025-04-10 18:43] LABS: Hematocrit 38.4 % (42.0-52.0); Hemoglobin 13.3 g/dL (14.0-18.0)
[2025-04-11 01:40] LABS: Hematocrit 37.5 % (42.0-52.0); Hemoglobin 13.1 g/dL (14.0-18.0)
[2025-04-11 04:58] VITALS: BP 125/58; PULSE 63; RESP 16; TEMP 36.4; O2SAT 96
[2025-04-11 09:30] VITALS: PULSE 64
[2025-04-11] MEDS: MULTIVITAMINS THERAPEUTIC TAB (*BKC) 1 TABLET PO (09:30)
[2025-04-11] MEDS: FINASTERIDE 5 MG TABLET PO (09:30)
[2025-04-11] MEDS: ATORVASTATIN 20 MG TABLET PO (09:30)
[2025-04-11] MEDS: METOPROLOL SUCCINATE EXT REL 25 MG TABCR PO (09:30)
[2025-04-11] MEDS: TAMSULOSIN HCL 0.4 MG CAPSULE PO (09:30)
--- NOTE | 2025-04-11 13:32 | P.DS_ITS ---
DS: Admitting Diagnosis Discharge Date 04/11/2025 Admitting Diagnosis Clot hematuria DS: Discharge Diagnosis Discharge Diagnosis (1) Clot hematuria: Code(s): R31.0 - Gross hematuria Status: Acute Assessment and Plan: History of TURBT procedure, performed on 04/09. Started developing hematuria and subsequent blood clots 6-8 hours after procedure. Then developed complete urinary retention * Catheter placed in ER, hematuria immediately cleared up, remains patent and draining * Abd/Pelvis CT: Mild stranding in the fat along the right posterior bladder wall likely related to recent urologic procedure. The previous noted intraluminal mass along the right posterior bladder which could have represent either clot or neoplasm is no longer visualized. Correlate with details of prior surgery. No other acute intra-abdominal/pelvic process. Prostatomegaly * Urology consulted * Continue CBI through tomorrow * Void trial tomorrow if catheter remains clear (2) Acute urinary obstruction: Code(s): N13.9 - Obstructive and reflux uropathy, unspecified Status: Acute Assessment and Plan: * Likely secondary to gross urinary clot formation (3) Type II diabetes mellitus: Code(s): E11.9 - Type 2 diabetes mellitus without complications Status: Acute Assessment and Plan: * Hypoglycemia protocol * POC blood glucose ACHS * Home medication - none * Correct regimen ordered - low dose SSI * Glucose 131 * Last A1C 7.2 (11/18/24) (4) Malignant neoplasm of overlapping sites of bladder: Code(s): C67.8 - Malignant neoplasm of overlapping sites of bladder Status: Acute Assessment and Plan: * TURBT procedure 04/09 for hx of bladder mass suspected cancer * Follows Dr. Pedroza (5) Hyperlipidemia: Code(s): E78.5 - Hyperlipidemia, unspecified Status: Acute Assessment and Plan: * Continue Atorvastatin (6) Hypertension: Qualifiers: Hypertension type: primary hypertension Qualified Code(s): I10 - Essential (primary) hypertension Code(s): I10 - Essential (primary) hypertension Status: Acute Assessment and Plan: * Continue at-home medications DS: Summary Hospital Course Reason for hospitalization: blood clots in urine Hospital Course: Umang Mcclain is a 80 year old male with a past medical history of HTN, T2DM, HLP, CAD, malignant neoplasm of bladder who presented to the hospital for hematuria/blood clots several hours after a TURBT procedure that occurred on 04/09/2025. He reported no symptoms 6-8 hours after bladder resection but then developed hematuria with blood clots. After the patient arrived to the ER, a urine catheter was placed and his hematuria cleared up immediately. He denies any chest pain, shortness of breath, nausea/vomiting, abdominal pain, or bowel changes. ED Workup: 36.2C, 55HR, 16RR, 97% on RA, 140/63 WBC 9.7, HGB 13 3, HCT 34, PLT 174, PT/INR WNL sodium 129, potassium 3.9, BUN 10, creatinine 0.58, LFTs are WNL UA: 3+ protein, 3+ blood, 1+ bilirubin, 1+ leukocyte esterase, >100RBC, 6-10 WBC, no bacteria or nitrate Abdomen/pelvis CT: 1. Mild stranding in the fat along the right posterior bladder wall likely related to recent urologic procedure. The previous noted intraluminal mass along the right posterior bladder which could have represent either clot or neoplasm is no longer visualized. Correlate with details of prior surgery. 2. No other acute intra-abdominal/pelvic process. 3. Prostatomegaly. 4. Small bilateral fat-containing inguinal hernias. Hospital course: Urology consulted regarding clot hematuria. Symptoms largely resolved once the catheter was placed in the ER. Urology recommended continuous bladder irrigation throughout 04/10 into the morning of 04/11. On 04/11, CBI was disco ntinued and void trial was attempted and patient was able to void without any difficulty or pain. Urine was noted to be dark yellow after catheter was removed. Patient is otherwise asymptomatic without any abnormalities on blood work. Vital signs remained stable and patient is amenable to discharge at this time. Urology cleared patient for discharge with appropriate follow-up in the outpatient setting with the urologist office. Plan for discharge home. Status at Discharge Functional status at discharge: independent ambulation Overall status at discharge: patient is back to baseline Time Spent with Patient Time attestation: Total time spent providing and/or coordinating discharge services: 24 Exam Narrative: Gen - well appearing male in no acute respiratory distress who is nontoxic- appearing lying semi recumbent in bed HEENT - normocephalic. Atraumatic. Pupils equal round and reactive. Nares patent. Moist mucous membranes. Neck - neck was supple. No dominant adenopathy, thyromegaly or masses. Chest - lungs are clear to auscultation bilaterally. No wheezes or crackles. CV - heart was regular rate and rhythm. S1-S2. No murmurs gallops or rubs. Abd - abdomen was soft. Nontender. Nondistended. Positive bowel sounds. : Urine catheter removed, urine dark yellow in color, no clots Ext - no clubbing, cyanosis or edema. 2+ DP pulses bilaterally. Neuro - patient is alert and oriented x4. Strength is 5/5 in both upper and lower extremities. Speech is clear. Psych - normal mood and affect. Patient is pleasant and cooperative. Skin - warm and dry. No rashes noted. DS: Data Data Completed and Pending Labs on day of discharge: Labs from last 24 hours 04/11/25 04/11/25 04/11/25 11:33 08:02 01:29 Hgb 13.1 L Hct 37.5 L POC Capillary Glucose 190 H 144 H 04/10/25 04/10/25 04/10/25 20:46 17:57 16:48 Hgb 13.3 L Hct 38.4 L POC Capillary Glucose 213 H 216 H Discharge Plan Discharge Attending physician on discharge: Alla Nieves Consulting providers: Jaime Gonzalez Discharging Clinician: Jaime Gonzalez Anticipated Discharge Date/Time: 04/11/25 13:28 Patient Disposition: Home Activity: as tolerated Diet: regular Discharge Instructions: Discharge disposition: Home Take medications as prescribed Monitor blood pressures Take caution while standing, rising, or moving Change positions slowly taking a break between each position change If you standing feel dizzy sit back down and take a break Encouraged to continue with yearly vaccinations Return to the emergency department if you develop sudden shortness of breath, chest pain, nausea, vomiting, upset stomach or intractable diarrhea Return to the emergency department if you develop fever greater than 101.5 Follow-up with the primary care physician within 1-[address] up [address] Pedroza of Urology on Sunday regarding your urinary blood clots and post bladder resection care. Thank you for [facility] for your healthcare needs Patient Instructions: Antibiotic Form Patient Language: Turkish Stand Alone Forms: General Discharge Information Follow-up/Referrals: Prince Pedroza MD [Physician, Urology] Barron Foley DO [Primary Care Provider, Internal Medicine] Discharge Medications: Continued multivitamin [Multiple Vitamins] Tablet 1 tablet PO DAILY aspirin [Adult Low Dose Aspirin] 81 mg tablet,delayed release (DR/EC) 81 mg PO DAILY Patient Comments: HOLD 7 DAYS PRIOR atorvastatin 20 mg tablet 20 mg PO DAILY metoprolol succinate 25 mg tablet extended release 24 hr 25 mg PO DAILY benazepril-hydrochlorothiazide 20-25 mg tablet 1 tablet PO DAILY tamsulosin 0.4 mg capsule 0.4 mg PO DAILY finasteride 5 mg tablet 5 mg PO DAILY Date of admission: 04/10/25 04:17 Primary Care Provider: Barron Foley Admitting Provider: Alla Nieves Attending physician on admission: Alla Nieves Condition: Stable Quality VTE Prophylaxis VTE prophylaxis: mechanical ordered
--- NOTE | 2025-04-11 13:50 | WPDUROPN2 ---
Progress Note: A&P Assessment and Plan (1) Acute urinary obstruction: Code(s): N13.9 - Obstructive and reflux uropathy, unspecified Status: Acute Assessment and Plan: He has been voiding without pain. (2) Clot hematuria: Code(s): R31.0 - Gross hematuria Status: Acute Assessment and Plan: The hematuria has resolved. OK for discharge home Subjective Subjective Date/Time Seen: 04/11/25 13:50 Interval history: He was able to void today. I observed the urine. It is yellow. Objective Data Vital Signs Vital Signs: Vital Signs - 24 hr 04/10/25 15:27 04/10/25 20:42 04/11/25 04:58 Temperature 36.7 C 36.2 C L 36.4 C Pulse Rate 65 61 63 Respiratory Rate 18 16 16 Blood Pressure 124/69 135/66 125/58 L Pulse Oximetry 99 96 96 Oxygen Delivery 04/11/25 09:30 04/11/25 09:30 Temperature Pulse Rate 64 Respiratory Rate Blood Pressure Pulse Oximetry Oxygen Delivery Room Air Intake/Output Intake/Output: Intake & Output 04/08/25 04/09/25 04/10/25 04/11/25 23:59 23:59 23:59 23:59 Intake Total 840 390 Output Total 7734 0983 Balance -9429 -894 Meds/Results Medications: Active Medications Generic Name Dose Route Start Last Admin Trade Name Freq PRN Reason Stop Dose Admin Acetaminophen 650 mg 04/10/25 04:17 Acetaminophen 325 Mg Tablet PO Q4H PRN Mild Pain (1-3) or Fever Atorvastatin Calcium 20 mg 04/10/25 10:35 04/11/25 09:30 Atorvastatin 20 Mg Tablet PO 20 mg DAILY [place] Administration Dextrose 12.5 gm 04/10/25 10:28 Dextrose 50% 25 Gm/50 Ml Syringe IV PUSH PRN PRN Hypoglycemia Protocol Finasteride 5 mg 04/10/25 10:35 04/11/25 09:30 Finasteride 5 Mg Tablet PO 5 mg DAILY [place] Administration Glucagon 1 mg 04/10/25 10:28 Glucagon For Inj 1 Mg Vial IM PRN PRN Hypoglycemia Protocol Glucose 15 gm 04/10/25 10:28 Glucose Oral Gel 15 Gm Of Glucse In 37.5 Gm Tube PO PRN PRN Hypoglycemia Protocol Hydrochlorothiazide 25 mg 04/10/25 10:40 04/11/25 09:30 Hydrochlorothiazide 25 Mg Tablet PO 25 mg DAILY [place] Administration Lactated Ringer's 1,000 mls @ 100 mls/hr 04/10/25 04:20 04/11/25 11:58 Lr - Lactated Ringers Iv IV CONT Not Given .Q10H [place] Dextrose 1,000 mls @ 100 mls/hr 04/10/25 10:28 Dextrose 5% 1,000 Ml IVPB PRN PRN Hypoglycemia Protocol Insulin Aspart 2 - 5 units 04/10/25 12:00 04/11/25 11:58 Insulin Aspart (*Bkc) 100 Units/Ml SUB-Q Not Given TIDWM [place] Protocol Insulin Aspart 1 - 2 units 04/10/25 21:00 04/10/25 20:55 Insulin Aspart (*Bkc) 100 Units/Ml SUB-Q 1 units HS [place] Administration Protocol Lisinopril 20 mg 04/10/25 10:40 04/11/25 09:30 Lisinopril 20 Mg Tablet PO 05/11/25 10:39 20 mg DAILY [place] Administration Metoprolol Succinate 25 mg 04/10/25 10:40 04/11/25 09:30 Metoprolol Succinate Ext Rel 25 Mg Tabcr PO 25 mg DAILY [place] Administration Multivitamins Therapeutic 1 tablet 04/10/25 10:40 04/11/25 09:30 Multivitamins Therapeutic Tab (*Bkc) PO 1 tablet DAILY [place] Administration Ondansetron HCl 4 mg 04/10/25 04:17 Ondansetron Inj 4 Mg/2 Ml Vial IV PUSH Q4H PRN Nausea Tamsulosin HCl 0.4 mg 04/10/25 10:40 04/11/25 09:30 Tamsulosin Hcl 0.4 Mg Capsule PO 0.4 mg DAILY [place] Administration Radiology Results: ITS Impressions Abdomen/Pelvis CT 04/10/25 08:07 IMPRESSION: 1. Mild stranding in the fat along the right posterior bladder wall likely related to recent urologic procedure. The previous noted intraluminal mass along the right posterior bladder which could have represent either clot or neoplasm is no longer visualized. Correlate with details of prior surgery. 2. No other acute intra-abdominal/pelvic process. 3. Prostatomegaly. 4. Small bilateral fat-containing inguinal hernias. Labs Labs: Laboratory Results - last 24 hr 04/10/25 04/10/25 04/10/25 16:48 17:57 20:46 Hgb 13.3 L Hct 38.4 L POC Capillary Glucose 216 H 213 H 04/11/25 04/11/25 04/11/25 01:29 08:02 11:33 Hgb 13.1 L Hct 37.5 L POC Capillary Glucose 144 H 190 H
[2025-04-11 14:08] VITALS: BP 148/78; PULSE 92; RESP 18; TEMP 35.8; O2SAT 97
== END 2025-04-11 14:45 | disposition home or self-care (01) ==
LOC: ANHED 04-10 00:24 → ANH3MEDSUR 04-10 05:31
PROVIDERS: Nurse Practitioner; Admitting Provider Internal Medicine; Emergency Provider Student in an Organized Health Care Education/Training Program; PCP Internal Medicine; Visit Provider Internal Medicine
DX: R31.0 Gross hematuria (principal); C67.8 Malignant neoplasm of overlapping sites of bladder; N13.9 Obstructive and reflux uropathy, unspecified; N99.820 Postprocedural hemorrhage of a genitourinary system organ or structure following a genitourinary system procedure; N40.0 Benign prostatic hyperplasia without lower urinary tract symptoms; K40.90 Unilateral inguinal hernia, without obstruction or gangrene, not specified as recurrent; M10.9 Gout, unspecified; I10 Essential (primary) hypertension; E11.9 Type 2 diabetes mellitus without complications; E78.5 Hyperlipidemia, unspecified; I25.10 Atherosclerotic heart disease of native coronary artery without angina pectoris; Z87.891 Personal history of nicotine dependence
CPT/HCPCS: 51702; 36415; 74177; 80048; 80053; 81001; 82948; 85014; 85018; 85025; 85027; 85610; 85730; 87086; 99285; A9270; G0378; J1815; J7120; Q9967

== ENCOUNTER 2025-04-16 19:38 | Emergency (ER) | payer MEDICARE, SELFPAY ==
[2025-04-16 19:39] VITALS: BP 185/82; PULSE 83; RESP 17; TEMP 36.7; O2SAT 98
[2025-04-16 19:45] VITALS: BP 142/77; PULSE 63; RESP 18; O2SAT 97
--- NOTE | 2025-04-16 19:48 | PC.NURSE ---
DR CRUMP AT THE BEDSIDE
--- NOTE | 2025-04-16 19:54 | ED.GENADULT ---
HPI - General Adult General Chief complaint: Unspecified Stated complaint: High BP Time Seen by Provider: 04/16/25 19:53 Source: patient and family Mode of arrival: ambulatory Limitations: no limitations History of Present Illness HPI narrative: This is a 72-year-old male with history of hypertension that presents with an elevated blood pressure reading at home and patient when initially came in blood pressure 185/82 currently on benazepril with hydrochlorothiazide and metoprolol. Heart rate initially 83 there is no chest pain or shortness of breath no abdominal pain no dysuria or hematuria no nausea vomiting no headache no blurry vision no neck pain or neck stiffness. Onset (ago): hour(s) Related Data Home Medications ?Medication ?Instructions ?Recorded ?Confirmed ?Last Taken ?Type aspirin 81 mg tablet,delayed 81 mg PO DAILY 06/20/19 04/15/25 04/01/25 History release (Adult Low Dose Aspirin) atorvastatin 20 mg tablet 20 mg PO DAILY 06/20/19 04/15/25 04/09/25 History metoprolol succinate 25 mg 25 mg PO DAILY 06/20/19 04/15/25 04/09/25 History tablet,extended release 24 hr multivitamin (Multiple Vitamins 1 tablet PO DAILY 06/20/19 04/15/25 04/09/25 History tablet) benazepril 20 1 tablet PO DAILY 02/25/25 04/15/25 04/09/25 History mg-hydrochlorothiazide 25 mg tablet finasteride 5 mg tablet 5 mg PO DAILY 02/25/25 04/15/25 04/09/25 History tamsulosin 0.4 mg capsule 0.4 mg PO DAILY 02/25/25 04/15/25 04/09/25 History Allergies Allergy/AdvReac Type Severity Reaction Status Date / Time Sulfa (Sulfonamide Allergy Mild Hives Verified 04/15/25 12:10 Antibiotics) Review of Systems Review of Systems: All systems reviewed & are unremarkable except as noted in HPI and below PMFSH Past Medical History Medical History Bladder mass BMI 24.0-24.9, adult Elevated blood pressure reading Other fatigue Rash of genital area Pure hypercholesterolemia Inflamed skin tag Gout, unspecified Encounter for screening for malignant neoplasm of prostate Adult general medical examination Surgical History Surgical History Hx of bladder repair surgery Family History Family History Mother Family history of diabetes mellitus in first degree relative Father Family history of congestive heart failure, Onset Age: 72 Social History Social History Smoking status: Former smoker Tobacco type: cigars Second hand tobacco smoke exposure: No Smoking end date: 06/25/10 Additional smoking assessment comments: QUIT CIGARS 2014 Alcohol intake: current Drinks per week: 12 Alcohol use details: BEER Substance use: never Substance use type: does not use Do You Feel Safe in your Home?: Yes Lack of Transportation: No Lack of Food: Never True Current Housing: I Have Housing Concerned About Future Housing: No Difficulty Paying Gas/Electric Bills: No Difficulty Paying for Meds: No Currently Unemployed: No Education: High School Diploma/GED Difficulty w/ Childcare or Family Care: No Living arrangements: alone Occupation/Education: retired Additional occupation/education comments: [employer] Gender identity (if verbalized by the patient): Male Spiritual care concerns: No Exam Const: General: cooperative, healthy appearing, comfortable, no acute distress and well developed HENMT: Face and sinus: normal facial exam Eyes: General: appearance normal, both eyes and all related structures Neck: Neck: normal visual inspection, full ROM, no lymphadenopathy and no meningeal signs Chest: Chest palpation & inspection: normal inspection of the chest Resp: Effort & Inspection: normal respiratory effort and able to speak in complete sentences Auscultation: clear to auscultation bilaterally Cardio: Jugular venous distension: no JVD Palpation: normal PMI Rate: regular rate Rhythm: regular rhythm Heart sounds: S1 normal heart sound present and S2 normal heart sound present GI: Inspection: normal to inspection : General: Yes bimanual renal exam normal bilaterally Skin: General skin exam: normal color and no rashes or lesions noted Neuro: General: oriented to person, oriented to place, oriented to time, patient oriented x3 and gait normal Course Course Emergency Course: Medical decision making air div: The patient was evaluated by myself in the emergency department. History obtained from patient who is an independent historian physical exam performed and witnessed by the nurse. External medical records were reviewed at this time. Blood pressure initially 185/82 with heart rate of 83. On repeat blood pressure and has decreased to 153/73 will give the patient a dose of 5mg amlodipine p.o. Repeat assessment: Patient doing well on repeat exam no acute distress, symptoms improved since arrival to the emergency department, repeat vitals blood pressure 153/73. Patient agrees with discussion and after shared medical decision making and agrees with discharge. All questions answered to the patient's satisfaction. Advised follow-up with primary care physician 3 to 5 days. Vital Signs Vital signs: Vital Signs Temperature 36.7 C 04/16/25 19:39 Pulse Rate 83 04/16/25 19:39 Respiratory Rate 17 04/16/25 19:39 Blood Pressure 185/82 H 04/16/25 19:39 Pulse Oximetry 98 04/16/25 19:39 Oxygen Delivery Room Air 04/16/25 19:39 Temperature 36.7 C 04/16/25 19:39 Pulse Rate 63 04/16/25 19:45 Respiratory Rate 18 04/16/25 19:45 Blood Pressure 142/77 H 04/16/25 19:45 Pulse Oximetry 97 04/16/25 19:45 Oxygen Delivery Room Air 04/16/25 19:45 Medical Decision Making Vital Signs Vital Signs: Vital Signs Temperature 36.7 C 04/16/25 19:39 Pulse Rate 83 04/16/25 19:39 Respiratory Rate 17 04/16/25 19:39 Blood Pressure 185/82 H 04/16/25 19:39 Pulse Oximetry 98 04/16/25 19:39 Oxygen Delivery Room Air 04/16/25 19:39 Temperature 36.7 C 04/16/25 19:39 Pulse Rate 63 04/16/25 19:45 Respiratory Rate 18 04/16/25 19:45 Blood Pressure 142/77 H 04/16/25 19:45 Pulse Oximetry 97 04/16/25 19:45 Oxygen Delivery Room Air 04/16/25 19:45 Critical Care Time Critical Care Time Critical Care Time: No Discharge Plan Discharge Clinical Impression: Hypertension Qualifiers: Hypertension type: primary hypertension Qualified Code(s): I10 - Essential (primary) hypertension Patient Disposition: Home Condition: Stable Instructions: Antibiotic Form, Hypertension (ED) Additional Instructions: Advised patient to follow with his primary care physician within 3 to 5 days for further evaluation and treatment. Advised patient to take an extra dose of metoprolol symptoms of hypertension should persist until follow-up with his primary Patient Language: [place] Prescriptions: No Action colchicine 0.6 mg tablet 0.6 mg PO BID Qty: 20 0RF methylprednisolone [Medrol (Jason)] 4 mg tablets,dose pack See Rx Instructions PO PER PKG DIR Qty: 21 0RF Rx Instructions: PO PER PKG DIR multivitamin [Multiple Vitamins] Tablet 1 tablet PO DAILY aspirin [Adult Low Dose Aspirin] 81 mg tablet,delayed release (DR/EC) 81 mg PO DAILY Patient Comments: HOLD 7 DAYS PRIOR atorvastatin 20 mg tablet 20 mg PO DAILY metoprolol succinate 25 mg tablet extended release 24 hr 25 mg PO DAILY benazepril-hydrochlorothiazide 20-25 mg tablet 1 tablet PO DAILY tamsulosin 0.4 mg capsule 0.4 mg PO DAILY finasteride 5 mg tablet 5 mg PO DAILY Follow-up/Referrals: Barron Foley DO [Primary Care Provider, Internal Medicine] Time of Disposition: 20:03
[2025-04-16 19:55] VITALS: BP 153/73; PULSE 66; RESP 18; O2SAT 99
[2025-04-16 20:02] VITALS: BP 155/81
--- NOTE | 2025-04-16 20:07 | PC.NURSE ---
RESTING ON STRETCHER WITH FAMILY MEMBER AT HIS SIDE. PATIENT CONTINUES TO DENY ANY PAIN OR NEEDS.
[2025-04-16 20:16] VITALS: BP 147/79; PULSE 63; RESP 18; O2SAT 97
--- NOTE | 2025-04-16 20:16 | PC.NURSE ---
DR CRUMP UPDATED ON CURRENT BLOOD PRESSURES. WILL PLAN FOR DISCHARGE
== END 2025-04-16 20:24 | disposition home or self-care (01) ==
LOC: CHSED 20:09
PROVIDERS: Emergency Provider Emergency Medicine; PCP Internal Medicine
DX: I10 Essential (primary) hypertension (principal); Z79.82 Long term (current) use of aspirin; Z79.899 Other long term (current) drug therapy; Z87.891 Personal history of nicotine dependence
CPT/HCPCS: 99283; A9270

== ENCOUNTER 2025-04-18 19:38 | Emergency (ER) | payer MEDICARE, SELFPAY ==
--- OUTSIDE RECORDS SUMMARY | 2025-04-18 19:41 | XMS_ITS | Clinical Summary ---
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 03/27/2017 History of coronary artery stent placement 03/27 Encounters Date Type Department Care Team Description 03/23/2025 8:45 AM CDT Office Visit [facility] Cardiology at [address] [place] [address] Yosvany Logan MD Coronary artery disease involving holy cross coronary artery of [facility] cross heart without angina pectoris (Primary Dx); History [...] on file 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
[2025-04-18 19:43] VITALS: BP 182/87; PULSE 63; RESP 20; TEMP 36.5; O2SAT 98
--- NOTE | 2025-04-18 19:53 | ED.GENADULT ---
HPI - General Adult General Stated complaint: high bp Time Seen by Provider: 04/18/25 19:52 Source: patient and family Mode of arrival: ambulatory Limitations: no limitations History of Present Illness HPI narrative: This is a 80-year-old male with history of hypertension presents with some elevated blood pressure currently asymptomatic with no chest pain no shortness of breath no headaches no blurry vision no abdominal pain no flank pain no dysuria no fever chills. Patient was here 2 days ago with similar issue with elevated blood pressure and was able to get in to see his primary care physician for follow-up [facility] for follow-up. Onset (ago): day(s) Related Data Home Medications ?Medication ?Instructions ?Recorded ?Confirmed ?Last Taken ?Type aspirin 81 mg tablet,delayed 81 mg PO DAILY 06/20/19 04/15/25 04/01/25 History release (Adult Low Dose Aspirin) atorvastatin 20 mg tablet 20 mg PO DAILY 06/20/19 04/15/25 04/09/25 History metoprolol succinate 25 mg 25 mg PO DAILY 06/20/19 04/15/25 04/09/25 History tablet,extended release 24 hr multivitamin (Multiple Vitamins 1 tablet PO DAILY 06/20/19 04/15/25 04/09/25 History tablet) benazepril 20 1 tablet PO DAILY 02/25/25 04/15/25 04/09/25 History mg-hydrochlorothiazide 25 mg tablet finasteride 5 mg tablet 5 mg PO DAILY 02/25/25 04/15/25 04/09/25 History tamsulosin 0.4 mg capsule 0.4 mg PO DAILY 02/25/25 04/15/25 04/09/25 History Allergies Allergy/AdvReac Type Severity Reaction Status Date / Time Sulfa (Sulfonamide Allergy Mild Hives Verified 04/18/25 19:55 Antibiotics) Review of Systems Review of Systems: All systems reviewed & are unremarkable except as noted in HPI and below PMFSH Past Medical History Medical History Bladder mass BMI 24.0-24.9, adult Elevated blood pressure reading Other fatigue Rash of genital area Pure hypercholesterolemia Inflamed skin tag Gout, unspecified Encounter for screening for malignant neoplasm of prostate Adult general medical examination Surgical History Surgical History Hx of bladder repair surgery Family History Family History Mother Family history of diabetes mellitus in first degree relative Father Family history of congestive heart failure, Onset Age: 72 Social History Social History Smoking status: Former smoker Tobacco type: cigars Second hand tobacco smoke exposure: No Smoking end date: 06/25/10 Additional smoking assessment comments: QUIT CIGARS 2014 Alcohol intake: current Drinks per week: 12 Alcohol use details: BEER Substance use: never Substance use type: does not use Do You Feel Safe in your Home?: Yes Lack of Transportation: No Lack of Food: Never True Current Housing: I Have Housing Concerned About Future Housing: No Difficulty Paying Gas/Electric Bills: No Difficulty Paying for Meds: No Currently Unemployed: No Education: High School Diploma/GED Difficulty w/ Childcare or Family Care: No Living arrangements: alone Occupation/Education: retired Additional occupation/education comments: [employer] Gender identity (if verbalized by the patient): Male Spiritual care concerns: No Exam Const: General: healthy appearing, no acute distress and alert Nutritional Appearance: well nourished and obese Orientation/consciousness: patient oriented x3 Neck: Neck: normal visual inspection, no lymphadenopathy and no meningeal signs Chest: Chest palpation & inspection: normal inspection of the chest Resp: Effort & Inspection: normal respiratory effort Auscultation: clear to auscultation bilaterally Cardio: Rate: regular rate Rhythm: regular rhythm GI: GI Palp: Yes Soft to palpation Auscultation: normal bowel sounds : General: Yes bladder normal to palpation Neuro: General: patient oriented x3, moves all extremities and no meningeal signs Cranial nerves: Yes Nystagmus not present Speech: Abnormal speech present Extrem: General: normal to inspection, no clubbing, cyanosis or edema and no pedal edema Psych: Affect: Anxious affect present Course Course Emergency Course: Medical decision making narrative: The patient was evaluated by myself in the emergency department. History obtained from the patient who is an independent history and physical exam performed and witnessed by nurse. External medical records were reviewed at this time. Patient blood pressure currently at 179/81 administered a dose of 10mg p.o. Norvasc otherwise patient is asymptomatic and resting comfortably with no acute distress. Repeat assessment: Patient doing well on repeat exam no acute distress Symptoms have improved since arrival to the ED repeat vitals have improved Patient agrees with discussion after shared medical decision making and agrees with discharge. All questions answered to the patient's satisfaction. Advised follow-up on Sunday with primary our Cardiology. Vital Signs Vital signs: Vital Signs Temperature 36.5 C 04/18/25 19:43 Pulse Rate 63 04/18/25 19:43 Respiratory Rate 20 04/18/25 19:43 Blood Pressure 182/87 H 04/18/25 19:43 Pulse Oximetry 98 04/18/25 19:43 Oxygen Delivery Room Air 04/18/25 19:43 Temperature 36.5 C 04/18/25 19:43 Pulse Rate 63 04/18/25 19:43 Respiratory Rate 20 04/18/25 19:43 Blood Pressure 182/87 H 04/18/25 19:43 Pulse Oximetry 98 04/18/25 19:43 Oxygen Delivery Room Air 04/18/25 19:43 Medical Decision Making Vital Signs Vital Signs: Vital Signs Temperature 36.5 C 04/18/25 19:43 Pulse Rate 63 04/18/25 19:43 Respiratory Rate 20 04/18/25 19:43 Blood Pressure 182/87 H 04/18/25 19:43 Pulse Oximetry 98 04/18/25 19:43 Oxygen Delivery Room Air 04/18/25 19:43 Temperature 36.5 C 04/18/25 19:43 Pulse Rate 63 04/18/25 19:43 Respiratory Rate 20 04/18/25 19:43 Blood Pressure 182/87 H 04/18/25 19:43 Pulse Oximetry 98 04/18/25 19:43 Oxygen Delivery Room Air 04/18/25 19:43 Critical Care Time Critical Care Time Critical Care Time: No Discharge Plan Discharge Clinical Impression: Hypertension Qualifiers: Hypertension type: primary hypertension Qualified Code(s): I10 - Essential (primary) hypertension Patient Disposition: Home Condition: Stable Instructions: Antibiotic Form, Chronic Hypertension (ED) Additional Instructions: Advised patient to take medicine as prescribed and follow-up with his Primary/c.o.d. biller on Sunday for further evaluation and treatment. Patient Language: Malay Prescriptions: No Action colchicine 0.6 mg tablet 0.6 mg PO BID Qty: 20 0RF methylprednisolone [Medrol (Jason)] 4 mg tablets,dose pack See Rx Instructions PO PER PKG DIR Qty: 21 0RF Rx Instructions: PO PER PKG DIR multivitamin [Multiple Vitamins] Tablet 1 tablet PO DAILY aspirin [Adult Low Dose Aspirin] 81 mg tablet,delayed release (DR/EC) 81 mg PO DAILY Patient Comments: HOLD 7 DAYS PRIOR atorvastatin 20 mg tablet 20 mg PO DAILY metoprolol succinate 25 mg tablet extended release 24 hr 25 mg PO DAILY benazepril-hydrochlorothiazide 20-25 mg tablet 1 tablet PO DAILY tamsulosin 0.4 mg capsule 0.4 mg PO DAILY finasteride 5 mg tablet 5 mg PO DAILY Follow-up/Referrals: Barron Foley DO [Primary Care Provider, Internal Medicine] Time of Disposition: 19:58
[2025-04-18 20:23] VITALS: BP 158/80; PULSE 56; RESP 17; O2SAT 97
--- NOTE | 2025-04-18 20:23 | PC.NURSE ---
ERP aware of pt's vital signs. No new orders at this time.
== END 2025-04-18 20:23 | disposition home or self-care (01) ==
LOC: CHSED 20:02
PROVIDERS: Emergency Provider Emergency Medicine; PCP Internal Medicine
DX: I10 Essential (primary) hypertension (principal); Z79.82 Long term (current) use of aspirin; Z79.899 Other long term (current) drug therapy; Z87.891 Personal history of nicotine dependence
CPT/HCPCS: 99283; A9270